=== PATIENT | male | born 1950 | race Caucasian/White ===

== ENCOUNTER 2022-05-16 10:47 | Emergency (ER) | payer OTHER ==
--- OUTSIDE RECORDS SUMMARY | 2022-05-16 10:54 | XMS REPORT | Continuity of Care Document ---
:1950 Author Organization [facility] t Address [address] [place] [address] Care Team Providers Name Role Phone [phone] Primary Care Physician Unavailable JENNIFER ROD Attending Clinician Unavailable SYSTEM, PROVIDER NOT IN Attending Clinician Unavailable JOSE ASKEW Attending Clinician Unavailable ARAM RUIZ Attending Clinician Unavailable KATHARINE HALL Attending Clinician Unavailable MARYLU COLÓN Attending Clinician Unavailable ARIAN READ Attending Clinician Unavailable CARSON BROWN Attending Clinician Unavailable Hang Villa Attending Clinician VISIT, NURSE ST XRAY Attending Clinician Unavailable YONI LLAMAS Attending Clinician Unavailable KATYA SKINNER Attending Clinician Unavailable Hang Villa Admitting Clinician Payers Payer Name Policy Type Policy Number Effective Date Expiration Date S ource MEDICARE PART A [id number] 2016 AND B 00:00:00 GENERIC MEDICARE [id number] 2020 SUP-SECONDARY ONLY 00:00:00 Problems Condition Condition Condition Status Onset Resolution Last Treating Co mments Source Name Details Category Date Date Treatment Clinician Date OSTEOARTHR OSTEOARTH Diagnosis Active 2016-09-29 Memoria 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 07:45:00 l LEFT LEFT 00:00: Jamaal [id number] HIP-M16.12 00 Active 09/15/2016 [place] Malignant Malignant Problem Resolve 2017-04-10 Memoria tumor of tumor of d 01:13:32 l prostate prostate Christian n (disorder) (disorder) Resolved Problem 04/10/2017 [facility] [place] Hip pain Hip pain Problem Active 2017-04-10 Memoria (finding) (finding) 01:13:32 l Active Jamaal Problem 04/10/2017 [facility] [place] Osteoarthr Osteoarth Problem Active 2017-04-10 Memoria itis of ritis of 01:13:32 l hip hip Jamaal (disorder) (disorder) Active Problem 04/10/2017 [facility] [place] Heart Heart Problem Active 2017-04-10 Memor ia murmur murmur 01:13:32 l (finding) (finding) Herm christi Active Problem 04/10/2017 [facility] [place] History of History Problem Active 2017-04-10 Memoria total hip of total 01:13:32 l arthroplas hip Christian n ty arthroplas (situation ty ) (situation ) Active Problem 04/10/2017 [facility] Hypertensi Hypertens Problem Active 2017-04-10 Memoria ve linn 01:13:32 l disorder, disorder, Herm christi systemic systemic arterial arterial (disorder) (disorder) Active Problem 04/10/2017 [facility] [place] 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 01:13:32 l s s Jamaal (disorder) (disorder) Active Problem 04/10/2017 [facility] Obesity Obesity Problem Active 2017-04-10 Me moria (disorder) (disorder) 01:13:32 l Active Hines Problem 04/10/2017 [facility] Preoperati Preoperat Problem Active 2017-04-10 [facility]oria [facility] 01:13:32 l (finding) (finding) Herm christi Active Problem 04/10/2017 [facility] [place] Allergies, Adverse Reactions, Alerts Allergy Allergy Status Severity Reaction(s) Onset Inactive Treating Comm ents Source Name Type Date Date Clinician penicill penicill Active Memori a ins ins l Jamaal Social History Social Habit Start Date Stop Date Quantity Comments Source Social History 2016-09-14 2016-09-14 Jagdish longo 17:08:52 17:08:52 Medications Ordered Filled Start Stop Current Ordering Indication Dosage Frequency Signature Comments Components Source Medication Medication Date Date Medication? Clinician (SIG) Name Name meloxicam 2016-05 Yes 15 mg = 1 Mem oria 15 mg oral 1-13 tab, PO, l tablet 20:17: Daily, # Hines 00 30 tab, 3 Refill(s), Pharmacy: [place] [id number] gabapentin 2016-05 Yes 300 mg = 1 M emoria 300 MG Oral 1-13 cap, PO, l Capsule 20:17: Daily, At Vivienne nn 00 bedtime, # 30 cap, 3 Refill(s), Pharmacy: [place] [id number] meloxicam 2016-05 Yes 15 mg = 1 Mem oria 15 mg oral 1-13 tab, PO, l tablet 20:17: Daily, # Hines 00 30 tab, 3 Refill(s), Pharmacy: [place] [id number] gabapentin 2016-05 Yes 300 mg = 1 M emoria 300 MG Oral 1-13 cap, PO, l Capsule 20:17: Daily, At Vivienne nn 00 bedtime, # 30 cap, 3 Refill(s), Pharmacy: [place] [id number] meloxicam 2016-05 Yes 15 mg = 1 Mem oria 15 mg oral 1-13 tab, PO, l tablet 20:17: Daily, # Hines 00 30 tab, 3 Refill(s), Pharmacy: [facility] gabapentin 2016-05 Yes 300 mg = 1 M emoria 300 MG Oral 1-13 cap, PO, l Capsule 20:17: Daily, At Vivienne nn 00 bedtime, # 30 cap, 3 Refill(s), Pharmacy: [place] [id number] Losartan No Notes: Memoria 5-04 (Same as: l 14:00: Cozaar) Enoxaparin No Notes: Memor ia 5-04 (Same as: l 14:00: Lovenox) Losartan No Notes: Memoria 5-04 (Same as: l 14:00: Cozaar) Enoxaparin No Notes: Memor ia 5-04 (Same as: l 14:00: Lovenox) Losartan No Notes: Memoria 5-04 (Same as: l 14:00: Cozaar) Jamaal Enoxaparin No Notes: Memor ia 5-04 (Same as: l 14:00: Lovenox) Hines acetaminoph No Notes: Max Memoria en 5-04 acetaminop l 11:00: hen 4000 Jamaal 00 mg/day (4 gm/day). (Same as: Tylenol Extra Strength) acetaminoph No Notes: Max Memoria en 5-04 acetaminop l 11:00: hen 4000 Jamaal 00 mg/day (4 gm/day). (Same as: Tylenol Extra Strength) acetaminoph No Notes: Max Memoria en 5-04 acetaminop l 11:00: hen 4000 Jamaal 00 mg/day (4 gm/day). (Same as: Tylenol Extra Strength) Ondansetron No Notes: Ricci breanna 5-04 (Same as: l 05:00: Zofran) Hines 00 MEDICATION WASTE Product Size: 4 mg Product Wasted: ___ mg Ondansetron No Notes: Ricci breanna 5-04 (Same as: l 05:00: Zofran) Jamaal 00 MEDICATION WASTE Product Size: 4 mg Product Wasted: ___ mg Ondansetron No Notes: Ricci breanna 5-04 (Same as: l 05:00: Zofran) Hines 00 MEDICATION WASTE Product Size: 4 mg Product Wasted: ___ mg Saline No Notes: Memoria Flush 0.9% 5-04 (Same as: l 02:00: BD Jamaal 00 Posiflush) Saline No Notes: Memoria Flush 0.9% 5-04 (Same as: l 02:00: BD Jamaal 00 Posiflush) Saline No Notes: Memoria Flush 0.9% 5-04 (Same as: l 02:00: BD Jamaal 00 Posiflush) Vancomycin No 2000 mg: Me moria 5-04 infuse l 01:00: over 2.5 Hines 00 hours MEDICATION WASTE Product Size: 1000 mg Product Wasted: ___ mg Vancomycin No 2001 mg: Me moria 5-04 infuse l 01:00: over 2.5 Jamaal 00 hours MEDICATION WASTE Product Size: 1000 mg Product Wasted: ___ mg Vancomycin No 2001 mg: Me moria 5-04 infuse l 01:00: over 2.5 Jamaal 00 hours MEDICATION WASTE Product Size: 1000 mg Product Wasted: ___ mg gabapentin No Notes: Memor ia 09-21 (Same as: l 23:00: Neurontin) Hines celecoxib No Notes: Memori a 5-03 NSAID. l 23:00: Please Jamaal 00 check indication . Not for seizure. (Same As: CeleBREX) Acetaminoph No Notes: Ricci breanna en 09-21 Infuse l 23:00: over 15 Jamaal 00 minutes Do not exceed 4gm/day of acetaminop hen MEDICATION WASTE Product Size: 1000 mg Product Wasted: ___ mg gabapentin No Notes: Memor ia 09-21 (Same as: l 23:00: Neurontin) Hines celecoxib No Notes: Memori a -03 NSAID. l 23:00: Please Jamaal 00 check indication . Not for seizure. (Same As: CeleBREX) Acetaminoph No Notes: Ricci breanna en 09-21 Infuse l 23:00: over 15 Jamaal 00 minutes Do not exceed 4gm/day of acetaminop hen MEDICATION WASTE Product Size: 1000 mg Product Wasted: ___ mg gabapentin No Notes: Memor ia 09-21 (Same as: l 23:00: Neurontin) Hines celecoxib No Notes: Memori a -03 NSAID. l 23:00: Please Hines 00 check indication . Not for seizure. (Same As: CeleBREX) Acetaminoph No Notes: Ricci breanna en 09-21 Infuse l 23:00: over 15 Jamaal 00 minutes Do not exceed 4gm/day of acetaminop hen MEDICATION WASTE Product Size: 1000 mg Product Wasted: ___ mg Docusate No Notes: Memoria Sodium 100 5-03 (Same as: l MG Oral 22:00: Colace) Jamaal Capsule 00 (Do Not Crush) Docusate No 100 mg, Memori a 5-03 Route: PO, l 22:00: BID, Jamaal 00 Dosing Weight 124.091, kg, Start date: 09/21/16 17:00:00 CDT, Duration: 30 day, Stop date: 10/21/16 9:00:00 CDT Docusate No Notes: Memoria Sodium 100 5-03 (Same as: l MG Oral 22:00: Colace) Jamaal Capsule 00 (Do Not Crush) Docusate No 100 mg, Memori a 5-03 Route: PO, l 22:00: BID, Jamaal 00 Dosing Weight 124.091, kg, Start date: 09/21/16 17:00:00 CDT, Duration: 30 day, Stop date: 10/21/16 9:00:00 CDT Docusate No Notes: Memoria Sodium 100 5-03 (Same as: l MG Oral 22:00: Colace) Jamaal Capsule 00 (Do Not Crush) Docusate No 100 mg, Memori a 5-03 Route: PO, l 22:00: BID, Jamaal 00 Dosing Weight 124.091, kg, Start date: 09/21/16 17:00:00 CDT, Duration: 30 day, Stop date: 10/21/16 9:00:00 CDT Morphine No Notes: Memoria 5-03 (Same l 21:14: as:MORPhin Jamaal 00 e Sulfate) Oxycodone No Notes: Memori a Hydrochlori 5-03 (Same as: l de 5 MG 21:14: Roxicodone Herm christi Oral Tablet ) Morphine No Notes: Memoria 5-03 (Same l 21:14: as:MORPhin Jamaal 00 e Sulfate) Oxycodone No Notes: Memori a Hydrochlori 5-03 (Same as: l de 5 MG 21:14: Roxicodone Herm christi Oral Tablet ) Morphine No Notes: Memoria 5-03 (Same l 21:14: as:MORPhin Jamaal 00 e Sulfate) Oxycodone No Notes: Memori a Hydrochlori -03 (Same as: l de 5 MG 21:14: Roxicodone Herm christi Oral Tablet 00 ) ferrous No Notes: Memoria sulfate 5-03 Give with l 18:00: food. "Do Hines 00 Not Crush" Robaxin No Notes: Memoria 5-03 (Same l 18:00: as:Robaxin Jamaal ) ferrous No Notes: Memoria sulfate 5-03 Give with l 18:00: food. "Do Hines 00 Not Crush" Robaxin No Notes: Memoria 5-03 (Same l 18:00: as:Robaxin Hines ) ferrous No Notes: Memoria sulfate 5-03 Give with l 18:00: food. "Do Hines 00 Not Crush" Robaxin No Notes: Memoria 5-03 (Same l 18:00: as:Robaxin Hines ) Acetaminoph Yes 1 - 2 tab, Memoria en 300 MG / 5-03 PO, Q4H, l Codeine 16:45: PRN Pain, Vivienne nn Phosphate 00 X 14 day, 60 MG Oral # 50 tab, Tablet 0 [Tylenol Refill(s) with Codeine #4] Methocarbam Yes 750 mg = 1 Memoria ol 750 MG 5-03 tab, PO, l Oral Tablet 16:45: BID, X 30 H ermann [Robaxin] 00 day, # 60 tab, 0 Refill(s) gabapentin Yes 300 mg = 1 M emoria 300 MG Oral 5-03 cap, PO, l Capsule 16:45: BID, # 60 Vivienne nn [Neurontin] 00 cap, 0 Refill(s) Acetaminoph Yes 1 - 2 tab, Memoria en 300 MG / 5-03 PO, Q4H, l Codeine 16:45: PRN Pain, Vivienne nn Phosphate 00 X 14 day, 60 MG Oral # 50 tab, Tablet 0 [Tylenol Refill(s) with Codeine #4] Methocarbam Yes 750 mg = 1 Memoria ol 750 MG 5-03 tab, PO, l Oral Tablet 16:45: BID, X 30 H ermann [Robaxin] 00 day, # 60 tab, 0 Refill(s) gabapentin Yes 300 mg = 1 M emoria 300 MG Oral 5-03 cap, PO, l Capsule 16:45: BID, # 60 Vivienne nn [Neurontin] 00 cap, 0 Refill(s) Acetaminoph Yes 1 - 2 tab, Memoria en 300 MG / 5-03 PO, Q4H, l Codeine 16:45: PRN Pain, Vivienne nn Phosphate 00 X 14 day, 60 MG Oral # 50 tab, Tablet 0 [Tylenol Refill(s) with Codeine #4] Methocarbam Yes 750 mg = 1 Memoria ol 750 MG 5-03 tab, PO, l Oral Tablet 16:45: BID, X 30 H ermann [Robaxin] 00 day, # 60 tab, 0 Refill(s) gabapentin Yes 300 mg = 1 M emoria 300 MG Oral 5-03 cap, PO, l Capsule 16:45: BID, # 60 Vivienne nn [Neurontin] 00 cap, 0 Refill(s) Saline No Notes: Memoria Flush 0.9% -03 (Same as: l 16:41: BD Jamaal 00 Posiflush) Diphenhydra No Notes: Ricci breanna mine 5-03 (Same as: l 16:41: Benadryl) Jamaal 00 Magnesium No Notes: Memori a Hydroxide 5-03 (Same as: l 16:41: Milk of Jamaal 00 Magnesia, MOM) Bisacodyl No Notes: Memori a 5-03 (Same As: l 16:41: Dulcolax, Hines Bisco-Lax) Milk of No Notes: Memoria Magnesia 5-03 (Same as: l 16:41: Milk of Magnesia, MOM) Fleet Enema No 133 ml, Mem oria 5-03 Route: MI, l 16:41: Drug Form: Jamaal LAURA, Dosing Weight 125.057, kg, Daily, PRN as needed for constipati on, Start date: 09/21/16 11:41:00 CDT, Duration: 30 day, Stop date: 10/21/16 11:40:00 CDT Reglan No Notes: Memoria 5-03 (Same as: l 16:41: Reglan) Ondansetron No Notes: Ricci breanna 5-03 (Same as: l 16:41: Zofran) MEDICATION WASTE Product Size: 4 mg Product Wasted: ___ mg Acetaminoph No Notes: Do M emoria en 5-03 not exceed l 16:41: 4 gm/day. Jamaal 00 (Same as: Tylenol) Lactated No 1,000 mL, Ricci breanna Ringers - Rate: 125 l 1,000 mL 16:41: ml/hr, Infuse over: 8 hr, Route: IV, Dosing Weight 125.057 kg, Total Volume: 1,000, Start date: 09/21/16 11:41:00 CDT, Duration: 30 day, Stop date: 10/21/16 11:40:00 CDT Saline No Notes: Memoria Flush 0.9% 5-03 (Same as: l 16:41: BD Posiflush) Diphenhydra No Notes: Ricci breanna mine 5-03 (Same as: l 16:41: Benadryl) Magnesium No Notes: Memori a Hydroxide 5-03 (Same as: l 16:41: Milk of Magnesia, MOM) Bisacodyl No Notes: Memori a 5-03 (Same As: l 16:41: Dulcolax, Bisco-Lax) Milk of No Notes: Memoria Magnesia 5-03 (Same as: l 16:41: Milk of Magnesia, MOM) Fleet Enema No 133 ml, Mem oria 5-03 Route: MI, l 16:41: Drug Form: LAURA, Dosing Weight 125.057, kg, Daily, PRN as needed for constipati on, Start date: 09/21/16 11:41:00 CDT, Duration: 30 day, Stop date: 10/21/16 11:40:00 CDT Reglan No Notes: Memoria 5-03 (Same as: l 16:41: Reglan) Ondansetron No Notes: Ricci breanna 5-03 (Same as: l 16:41: Zofran) MEDICATION WASTE Product Size: 4 mg Product Wasted: ___ mg Acetaminoph No Notes: Do M emoria en 5-03 not exceed l 16:41: 4 gm/day. Hines 00 (Same as: Tylenol) Lactated No 1,000 mL, Ricci breanna Ringers -03 Rate: 125 l 1,000 mL 16:41: ml/hr, Infuse over: 8 hr, Route: IV, Dosing Weight 125.057 kg, Total Volume: 1,000, Start date: 09/21/16 11:41:00 CDT, Duration: 30 day, Stop date: 10/21/16 11:40:00 CDT Saline No Notes: Memoria Flush 0.9% 5-03 (Same as: l 16:41: BD Posiflush) Diphenhydra No Notes: Ricci breanna mine 5-03 (Same as: l 16:41: Benadryl) Magnesium No Notes: Memori a Hydroxide 5-03 (Same as: l 16:41: Milk of Hines Magnesia, MOM) Bisacodyl No Notes: Memori a 5-03 (Same As: l 16:41: Dulcolax, Jamaal 00 Bisco-Lax) Milk of No Notes: Memoria Magnesia 5-03 (Same as: l 16:41: Milk of Hines Magnesia, MOM) Fleet Enema No 133 ml, Mem oria 5-03 Route: MI, l 16:41: Drug Form: LAURA, Dosing Weight 125.057, kg, Daily, PRN as needed for constipati on, Start date: 09/21/16 11:41:00 CDT, Duration: 30 day, Stop date: 10/21/16 11:40:00 CDT Reglan No Notes: Memoria 5-03 (Same as: l 16:41: Reglan) Ondansetron No Notes: Ricci breanna 09-21 (Same as: l 16:41: Zofran) MEDICATION WASTE Product Size: 4 mg Product Wasted: ___ mg Acetaminoph No Notes: Do Antoinette jacob en 09-21 not exceed l 16:41: 4 gm/day. (Same as: Tylenol) Lactated No 1,000 mL, Ricci breanna Ringers 09-21 Rate: 125 l 1,000 mL 16:41: ml/hr, Infuse over: 8 hr, Route: IV, Dosing Weight 125.057 kg, Total Volume: 1,000, Start date: 09/21/16 11:41:00 CDT, Duration: 30 day, Stop date: 10/21/16 11:40:00 CDT glycopyrrol No Route: IV, Memoria ate (ANES) 09-21 Drug form: l 16:20: INJ, ONCE, Stop date: 09/21/16 11:20:00 CDT neostigmine No Route: IV, Memoria (ANES) - Drug form: l 16:20: INJ, ONCE, Stop date: 09/21/16 11:20:00 CDT glycopyrrol No Route: IV, Memoria ate (ANES) - Drug form: l 16:20: INJ, ONCE, Stop date: 09/21/16 11:20:00 CDT neostigmine No Route: IV, Memoria (ANES) 5-03 Drug form: l 16:20: INJ, ONCE, Stop date: 09/21/16 11:20:00 CDT glycopyrrol No Route: IV, Memoria ate (ANES) 5- Drug form: l 16:20: INJ, ONCE, Stop date: 09/21/16 11:20:00 CDT neostigmine No Route: IV, Memoria (ANES) 5- Drug form: l 16:20: INJ, ONCE, Stop date: 09/21/16 11:20:00 CDT ondansetron No Route: IV, Memoria (ANES) 5- Drug form: l 16:06: INJ, ONCE, Hines 00 Stop date: 09/21/16 11:06:00 CDT ondansetron No Route: IV, Memoria (ANES) 5-03 Drug form: l 16:06: INJ, ONCE, Hines 00 Stop date: 09/21/16 11:06:00 CDT ondansetron No Route: IV, Memoria (ANES) 5- Drug form: l 16:06: INJ, ONCE, Stop date: 09/21/16 11:06:00 CDT Ondansetron No Notes: Ricci breanna 5-03 (Same as: l 16:01: Zofran) MEDICATION WASTE Product Size: 4 mg Product Wasted: ___ mg Flumazenil No Notes: Memor ia 5-03 (Same as: l 16:01: Romazicon) Naloxone No Notes: Memoria 5-03 Same as l 16:01: Narcan Hydromorpho No Notes: Ricci breanna ne -03 Same as l 16:01: Dilaudid Morphine No Notes: Memoria 5-03 (Same l 16:01: as:MORPhin e Sulfate) Acetaminoph No Notes: Max Memoria en 09-21 acetaminop l 16:01: hen 4000 mg/day (4 gm/day). (Same as: Tylenol Extra Strength) Ketorolac No 4 days Memor ia 5-03 l 16:01: MEDICATION WASTE Product Size: 30 mg Product Wasted: ___ mg Hydralazine No Notes: Ricci breanna 5-03 (Same as: l 16:01: Apresoline ) Push over 5 minutes Metoprolol No Notes: Memor ia 5-03 (Same as: l 16:01: Lopressor) Push over 2 minutes Calcium No 1,000 mL, Memor ia Chloride 5-03 Rate: 125 l 0.0014 16:01: ml/hr, Jamaal MEQ/ML / 00 Infuse Potassium over: 8 Chloride hr, Route: 0.004 IV, Dosing MEQ/ML / Weight Sodium 125.057 Chloride kg, Total 0.103 Volume: MEQ/ML / 1,000, Sodium Start Lactate date: 0.028 09/21/16 MEQ/ML 11:01:00 Injectable CDT, Solution Duration: 30 day, Stop date: 10/21/16 11:00:00 CDT Ondansetron No Notes: Ricci breanna 5-03 (Same as: l 16:01: Zofran) Jamaal 00 MEDICATION WASTE Product Size: 4 mg Product Wasted: ___ mg Flumazenil No Notes: Memor ia 5-03 (Same as: l 16:01: Romazicon) Hines Naloxone No Notes: Memoria 5-03 Same as l 16:01: Narcan Hydromorpho No Notes: Ricci breanna ne -03 Same as l 16:01: Dilaudid Jamaal 00 Morphine No Notes: Memoria 5-03 (Same l 16:01: as:MORPhin Hines 00 e Sulfate) Acetaminoph No Notes: Max Memoria en 09-21 acetaminop l 16:01: hen 4000 Jamaal 00 mg/day (4 gm/day). (Same as: Tylenol Extra Strength) Ketorolac No 4 days Memor ia 5-03 l 16:01: MEDICATION Jamaal WASTE Product Size: 30 mg Product Wasted: ___ mg Hydralazine No Notes: Ricci breanna 5-03 (Same as: l 16:01: Apresoline Jamaal 00 ) Push over 5 minutes Metoprolol No Notes: Memor ia 5-03 (Same as: l 16:01: Lopressor) Hines 00 Push over 2 minutes Calcium No 1,000 mL, Memor ia Chloride 5-03 Rate: 125 l 0.0014 16:01: ml/hr, Hines MEQ/ML / 00 Infuse Potassium over: 8 Chloride hr, Route: 0.004 IV, Dosing MEQ/ML / Weight Sodium 125.057 Chloride kg, Total 0.103 Volume: MEQ/ML / 1,000, Sodium Start Lactate date: 0.028 09/21/17 MEQ/ML 11:01:00 Injectable CDT, Solution Duration: 30 day, Stop date: 10/21/16 11:00:00 CDT Ondansetron No Notes: Ricci breanna 5-03 (Same as: l 16:01: Zofran) Hines MEDICATION WASTE Product Size: 4 mg Product Wasted: ___ mg Flumazenil No Notes: Memor ia 5-03 (Same as: l 16:01: Romazicon) Hines Naloxone No Notes: Memoria 5-03 Same as l 16:01: Narcan Hydromorpho No Notes: Ricci breanna ne - Same as l 16:01: Dilaudid Morphine No Notes: Memoria 5-03 (Same l 16:01: as:MORPhin Jamaal 00 e Sulfate) Acetaminoph No Notes: Max Memoria en 09-21 acetaminop l 16:01: hen 4000 Jamaal 00 mg/day (4 gm/day). (Same as: Tylenol Extra Strength) Ketorolac No 4 days Memor ia 5-03 l 16:01: MEDICATION Hines 00 WASTE Product Size: 30 mg Product Wasted: ___ mg Hydralazine No Notes: Ricci breanna 5-03 (Same as: l 16:01: Apresoline Jamaal 00 ) Push over 5 minutes Metoprolol No Notes: Memor ia 5-03 (Same as: l 16:01: Lopressor) Push over 2 minutes Calcium No 1,000 mL, Memor ia Chloride 5-03 Rate: 125 l 0.0014 16:01: ml/hr, Hines MEQ/ML / 00 Infuse Potassium over: 8 Chloride hr, Route: 0.004 IV, Dosing MEQ/ML / Weight Sodium 125.057 Chloride kg, Total 0.103 Volume: MEQ/ML / 1,000, Sodium Start Lactate date: 0.028 05/03/17 MEQ/ML 11:01:00 Injectable CDT, Solution Duration: 30 day, Stop date: 10/21/16 11:00:00 CDT ropivacaine 2016-0 No Notes: Ricci breanna 5-03 Final l 15:02: concentrat ion: Ropivacain e 0.2% 550 mL ropivacaine 2016-0 No Notes: Ricci breanna 5- Final l 15:02: concentrat ion: Ropivacain e 0.2% 550 mL ropivacaine 2016-0 No Notes: Ricci breanna 5- Final l 15:02: concentrat ion: Ropivacain e 0.2% 550 mL tranexamic 2016-0 No Route: IV, M emoria acid (ANES) 5- Drug form: l 15:01: INJ, ONCE, Stop date: 09/21/16 10:01:00 CDT tranexamic 2016-0 No Route: IV, M emoria acid (ANES) 5- Drug form: l 15:01: INJ, ONCE Stop date: 09/21/16 10:01:00 CDT tranexamic 2016-0 No Route: IV, M emoria acid (ANES) 5-03 Drug form: l 15:01: INJ, ONCE, Stop date: 09/21/16 10:01:00 CDT dexamethaso 2016-0 No Route: IV, Memoria ne (ANES) 5-03 Drug form: l 14:51: INJ, ONCE, Stop date: 09/21/16 9:51:00 CDT dexamethaso 2016-0 No Route: IV, Memoria ne (ANES) 5-03 Drug form: l 14:51: INJ, ONCE, Stop date: 09/21/16 9:51:00 CDT dexamethaso 2017-0 No Route: IV, Memoria ne (ANES) 5-03 Drug form: l 14:51: INJ, ONCE, Stop date: 09/21/16 9:51:00 CDT fentaNYL 2016-0 No Route: IV, Mem oria (ANES) 5-03 Drug form: l 14:31: INJ, ONCE, Stop date: 09/21/16 9:31:00 CDT rocuronium 2017-0 No Route: IV, M emoria (ANES) 5-03 Drug form: l 14:31: INJ, ONCE, Hines 00 Stop date: 09/21/16 9:31:00 CDT ePHEDrine 2017-0 No Route: IV, Me moria (ANES) 5- Drug form: l 14:31: INJ, ONCE, Stop date: 09/21/16 9:31:00 CDT propofol 2017-0 No Route: IV, Mem oria (ANES) 5- Drug form: l 14:31: INJ, ONCE, Jamaal 00 Stop date: 09/21/16 9:31:00 CDT lidocaine 2017-0 No Route: IV, Me moria (ANES) 5- Drug form: l 14:31: INJ, ONCE, Hines 00 Stop date: 09/21/16 9:31:00 CDT fentaNYL 2017-0 No Route: IV, Mem oria (ANES) 5- Drug form: l 14:31: INJ, ONCE, Stop date: 09/21/16 9:31:00 CDT rocuronium 2017-0 No Route: IV, M emoria (ANES) 5- Drug form: l 14:31: INJ, ONCE, Stop date: 09/21/16 9:31:00 CDT ePHEDrine 2017-0 No Route: IV, Me moria (ANES) 5-03 Drug form: l 14:31: INJ, ONCE, Stop date: 09/21/16 9:31:00 CDT propofol 2017-0 No Route: IV, Mem oria (ANES) 5-03 Drug form: l 14:31: INJ, ONCE, Hines 00 Stop date: 09/21/16 9:31:00 CDT lidocaine 2017-0 No Route: IV, Me moria (ANES) 5-03 Drug form: l 14:31: INJ, ONCE, Jamaal 00 Stop date: 09/21/16 9:31:00 CDT fentaNYL 2017-0 No Route: IV, Mem oria (ANES) 5-03 Drug form: l 14:31: INJ, ONCE, Jamaal 00 Stop date: 09/21/16 9:31:00 CDT rocuronium No Route: IV, M emoria (ANES) 09-21 Drug form: l 14:31: INJ, ONCE, Hines 00 Stop date: 09/21/16 9:31:00 CDT ePHEDrine No Route: IV, Me moria (ANES) 09-21 Drug form: l 14:31: INJ, ONCE, Stop date: 09/21/16 9:31:00 CDT propofol No Route: IV, Mem oria (ANES) 09-21 Drug form: l 14:31: INJ, ONCE, Stop date: 09/21/16 9:31:00 CDT lidocaine No Route: IV, Me moria (ANES) 09-21 Drug form: l 14:31: INJ, ONCE, Stop date: 09/21/16 9:31:00 CDT LR 1000 mL No Route: IV, M emoria INJ (ANES) - Total l 13:35: Volume: Hines 00 1,000, Start date: 09/21/16 8:35:00 CDT, Stop date: 09/21/16 9:35:00 CDT LR 1000 mL No Route: IV, M emoria INJ (ANES) - Total l 13:35: Volume: Hines 00 1,000, Start date: 09/21/16 8:35:00 CDT, Stop date: 09/21/16 9:35:00 CDT LR 1000 mL No Route: IV, M emoria INJ (ANES) - Total l 13:35: Volume: Hines 00 1,000, Start date: 09/21/16 8:35:00 CDT, Stop date: 09/21/16 9:35:00 CDT sodium No Route: IV, Memor ia chloride 09-21 Drug form: l 0.9% 250 ml 13:00: INJ, Start Jamaal INJ (ANES) 00 date: + 09/21/16 vancomycin 8:00:00 (ANES) CDT, Stop (ANES) date: 09/21/16 9:00:00 CDT sodium 2017-0 No Route: IV, Memor ia chloride 09-21 Drug form: l 0.9% 250 ml 13:00: INJ, Start Jamaal INJ (ANES) 00 date: 09/21/16 vancomycin 8:00:00 (ANES) CDT, Stop (ANES) date: 09/21/16 9:00:00 CDT sodium 2017-0 No Route: IV, Memor ia chloride 09-21 Drug form: l 0.9% 250 ml 13:00: INJ, Start Jamaal INJ (ANES) 00 date: 09/21/16 vancomycin 8:00:00 (ANES) CDT, Stop (ANES) date: 09/21/16 9:00:00 CDT Calcium 2017-0 No 1,000 mL, Memor ia Chloride 09-21 Rate: 25 l 0.0014 11:06: ml/hr, Jamaal MEQ/ML / 00 Infuse Potassium over: 40 Chloride hr, Route: 0.004 IV, Dosing MEQ/ML / Weight 125 Sodium kg, Total Chloride Volume: 0.103 1,000, MEQ/ML / Start Sodium date: Lactate 09/21/16 0.028 6:06:00 MEQ/ML CDT, Injectable Duration: Solution 30 day, Stop date: 10/21/16 6:05:00 CDT Calcium 2017-0 No 1,000 mL, Memor ia Chloride 09-21 Rate: 25 l 0.0014 11:06: ml/hr, Hines MEQ/ML / 00 Infuse Potassium over: 40 Chloride hr, Route: 0.004 IV, Dosing MEQ/ML / Weight 125 Sodium kg, Total Chloride Volume: 0.103 1,000, MEQ/ML / Start Sodium date: Lactate 09/21/16 0.028 6:06:00 MEQ/ML CDT, Injectable Duration: Solution 30 day, Stop date: 10/21/16 6:05:00 CDT Calcium 2017-0 No 1,000 mL, Memor ia Chloride 09-21 Rate: 25 l 0.0014 11:06: ml/hr, Jamaal MEQ/ML / 00 Infuse Potassium over: 40 Chloride hr, Route: 0.004 IV, Dosing MEQ/ML / Weight 125 Sodium kg, Total Chloride Volume: 0.103 1,000, MEQ/ML / Start Sodium date: Lactate 09/21/16 0.028 6:06:00 MEQ/ML CDT, Injectable Duration: Solution 30 day, Stop date: 10/21/16 6:05:00 CDT BD Normal No Notes: Memori a Saline 5-03 (Same as: l Flush 11:00: BD Hines Posiflush) Neurontin No Notes: Memori a 5-03 (Same as: l 11:00: Neurontin) Jamaal CeleBREX No Notes: Memoria 5-03 NSAID. l 11:00: Please Jamaal 00 check indication . Not for seizure. (Same As: CeleBREX) Ancef No Notes: Memoria 5-03 Same as: l 11:00: Ancef Hines vancomycin 0 No 2001 mg: Me moria + sodium 5-03 infuse l chloride 11:00: over 2.5 Vivienne nn 0.9% 500 mL 00 hours INJ (for IV MEDICATION set) 500 mL WASTE Product Size: 1000 mg Product Wasted: ___ mg BD Normal No Notes: Memori a Saline 5-03 (Same as: l Flush 11:00: BD Hines Posiflush) Neurontin No Notes: Memori a 5-03 (Same as: l 11:00: Neurontin) Jamaal CeleBREX No Notes: Memoria 5-03 NSAID. l 11:00: Please Jamaal 00 check indication . Not for seizure. (Same As: CeleBREX) Ancef No Notes: Memoria 5-03 Same as: l 11:00: Ancef Hines vancomycin 0 No 2001 mg: Me moria + sodium 5-03 infuse l chloride 11:00: over 2.5 Vivienne nn 0.9% 500 mL 00 hours INJ (for IV MEDICATION set) 500 mL WASTE Product Size: 1000 mg Product Wasted: ___ mg BD Normal No Notes: Memori a Saline 5-03 (Same as: l Flush 11:00: BD Jamaal 00 Posiflush) Neurontin 0 No Notes: Memori a 5-03 (Same as: l 11:00: Neurontin) Jamaal CeleBREX No Notes: Memoria 5-03 NSAID. l 11:00: Please Jamaal 00 check indication . Not for seizure. (Same As: CeleBREX) Ancef No Notes: Memoria 5-03 Same as: l 11:00: Ancef Jamaal 00 vancomycin No 2000 mg: Me moria + sodium - infuse l chloride 11:00: over 2.5 Vivienne nn 0.9% 500 mL 00 hours INJ (for IV MEDICATION set) 500 mL WASTE Product Size: 1000 mg Product Wasted: ___ mg Vital Signs Vital Name Observation Time Observation Value Comments Source Heart Rate 2017-04-03 20:02:00 [facility] Weight 2017-04-03 20:02:00 [facility] Systolic (mm Hg) 2017-04-03 20:02:00 Ricci rial Hines Diastolic (mm Hg) 2017-04-03 20:02:00 Mem orial Hines Systolic (mm Hg) 2016-09-22 16:55:00 Ricci rial Jamaal Diastolic (mm Hg) 2016-09-22 16:55:00 Mem orial Hines Respitory Rate 2016-09-22 16:55:00 Memori al Jamaal Heart Rate 2016-09-22 16:55:00 [facility] Temperature Oral (F) 2016-09-22 16:55:00 98.1 F [facility] Systolic (mm Hg) 2016-09-22 12:21:00 Ricci rial Hines Diastolic (mm Hg) 2016-09-22 12:21:00 Mem orial Jamaal Respitory Rate 2016-09-22 12:21:00 Memori al Jamaal Temperature Oral (F) 2016-09-22 12:21:00 97.7 F [facility] Heart Rate 2016-09-22 12:21:00 [facility] Respitory Rate 2016-09-22 10:16:00 Memori al Jamaal Heart Rate 2016-09-22 10:16:00 [facility] Systolic (mm Hg) 2016-09-22 10:16:00 Ricci rial Jamaal Diastolic (mm Hg) 2016-09-22 10:16:00 Mem orial Jamaal Temperature Oral (F) 2016-09-22 10:16:00 98.3 F [facility] BMI Calculated 2016-09-21 18:31:00 Rashid davis Hines Weight 2016-09-21 18:31:00 [facility] Height 2016-09-21 18:31:00 182.88 cm [facility] BMI Calculated 2016-09-21 11:07:00 Rashid davis Jamaal Weight 2016-09-21 11:07:00 [facility] Height 2016-09-14 17:03:00 182.88 cm [facility] Procedures Procedure Date / Time Performed Performing Clinician [facility] camacho Arthroplasty of the 2016-09-21 05:00:00 [facility] Jamaal hip<sup>1</sup> Procedure on 2004-05-22 00:00:00 [facility] Her ndiaye prostate<sup>2</sup> Encounters Start End Encounter Admission Attending Care Care Encounter Source Date/Time Date/Time Type Type Clinicians Facility Department ID 2022-04-29 Inpatient JUAN M ROD [facility] [id number] [place] 11:00:00 JENNIFER [id number] [facility] 2020-12-03 Outpatient SYSTEM, [facility] [id number] 13:01:42 PROVIDER Stevenradha wilkinson 2022-05-12 2022-05-12 Emergency ER JAMILAH, [facility] [id number] [place] 07:06:00 12:39:00 JOSE [id number] [facility] 2022-05-04 2022-05-04 Outpatient JUAN M ROD [facility] [id number] [place] 07:18:00 07:18:00 JENNIFER [id number] [facility] 2022-04-19 2022-04-19 Outpatient JUAN M GALE [facility] [id number] [place] 07:56:00 07:56:00 Vernon [id number] d a [facility] 2022-01-19 2022-01-19 Outpatient JUAN M PANT [facility] [id number] [place] 08:35:00 08:35:00 Vernon [id number] d a [facility] 2021-12-30 2021-12-30 Outpatient JUAN M ISABEL, [facility] [id number] [place] 07:56:00 07:56:00 KATHARINE [id number] [facility] 2021-10-04 2021-10-04 Outpatient EL PANT [facility] [id number] [place] 07:50:00 07:50:00 TERESE -[id number] d [facility] 2021-07-06 2021-07-06 Outpatient EL PANT [facility] [id number] [place] 07:46:00 07:46:00 TERESE -[id number] d [facility] 2021-04-08 2021-04-08 Outpatient [place] PANT [facility] [id number] [place] 08:33:00 08:33:00 TERESE -[id number] d [facility] 2020-12-28 2020-12-28 Outpatient EL PANT [facility] [id number] [place] 08:08:00 08:08:00 TERESE -[id number] d [facility] 2020-12-23 2020-12-23 Outpatient [place] PANT [facility] [id number] [place] 07:45:00 07:45:00 TERESE -[id number] d [facility] 2020-12-08 2020-12-08 Outpatient JUAN M COLÓN MDA MDA [id number] 13:28:30 16:13:42 MARYLU wilkinson 2020-12-08 2020-12-08 Outpatient JUAN M DELONTE READ MDA [id number] 15:12:05 15:14:57 ARIAN wilkinson 2020-12-08 2020-12-08 Outpatient JUAN M COLÓN MDA MDA [id number] 13:07:57 13:07:57 MARYLU wilkinson 2020-12-08 2020-12-08 Outpatient JUAN M COLÓN DELONTE MDA [id number] 12:45:53 12:46:01 MARYLU wilkinson 2020-11-29 2020-11-29 Emergency ER [facility] [id number] [place] 04:01:00 06:50:00 [id number] [facility] 2017-04-07 2017-04-07 [place] [id number] Memoria 19:15:00 19:15:00 Pre-Reg r Orthopedics 16 [facility] 2017-04-07 2017-04-07 [place] [id number] [facility] 19:15:00 19:15:00 Pre-Reg r Orthopedics 16 [facility] [place] 2017-04-07 2017-04-07 Outpatient B[facility] SORIANOIE [id number] [facility]oria 13:15:00 13:15:00 16 [facility] [place] 2017-04-07 2017-04-07 [id number] 13:15:00 13:15:00 Hang F 16 2017-04-03 2017-04-04 [place] [id number] [facility] 19:30:00 05:59:59 r Orthopedics 17 [facility] 2017-04-03 2017-04-04 [place] [id number] [facility] 19:30:00 05:59:59 r Orthopedics 17 [facility] [place] 2017-04-03 2017-04-04 Outpatient nullFlavo MG Family 5 [id number] Memoria 19:00:00 05:59:59 r Medicine 18 [facility] [place] 2017-04-03 2017-04-04 Outpatient nullFlavo MG Family 5 [id number] Memoria 19:00:00 05:59:59 r Medicine 18 [facility] [place] 2017-04-03 2017-04-03 [facility] [id number] 13:30:00 23:59:59 Hang F 17 2017-04-03 2017-04-03 Outpatient VISIT, MG MG [id number] 13:00:00 23:59:[address] 18 RUSSEL 2017-04-03 2017-04-03 Outpatient [facility] [id number] Memoria 13:30:00 13:30:00 17 [facility] [place] 2017-04-03 2017-04-03 Outpatient [facility] S[facility]OIE [id number] Memoria 13:00:00 13:00:00 18 [facility] 2017-01-06 2017-01-06 Outpatient BOIE BOIE [id number] Memoria 14:45:00 14:45:00 15 [facility] Jamaal 2017-01-06 2017-01-06 Outpatient MHIE MHIE [id number] Memoria 14:45:00 14:45:00 14 [facility] Hines 2017-01-06 2017-01-06 Outpatient MHIE MHIE [id number] Memoria 14:45:00 14:45:00 15 [facility] Hines 2017-01-06 2017-01-06 Outpatient MHIE MHIE [id number] Memoria 14:45:00 14:45:00 14 [facility] Hines 2017-01-06 2017-01-06 Outpatient MHIE MHIE [id number] Memoria 14:15:00 14:15:00 13 [facility] Jamaal 2017-01-06 2017-01-06 Outpatient MHIE MHIE [id number] Memoria 14:15:00 14:15:00 13 [facility] Jamaal 2017-01-06 2017-01-06 Outpatient MHIE MHIE [id number] Memoria 13:45:00 13:45:00 12 [facility] Hines 2017-01-06 2017-01-06 Outpatient MHIE MHIE [id number] Memoria 13:45:00 13:45:00 12 [facility] Jamaal 2016-12-09 2016-12-09 Outpatient MHIE MHIE [id number] Memoria 13:15:00 13:15:00 11 [facility] Hines 2016-12-09 2016-12-09 Outpatient MHIE MHIE [id number] Memoria 13:15:00 13:15:00 11 [facility] 2016-11-11 2016-11-11 Outpatient MHIE MHIE [id number] Memoria 14:45:00 14:45:00 09 [facility] Hines 2016-11-11 2016-11-11 Outpatient MHIE MHIE [id number] Memoria 14:45:00 14:45:00 10 [facility] Jamaal 2016-11-11 2016-11-11 Outpatient MHIE MHIE [id number] Memoria 14:45:00 14:45:00 09 [facility] Jamaal 2016-11-11 2016-11-11 Outpatient MHIE MHIE [id number] Memoria 14:45:00 14:45:00 10 [facility] Jamaal 2016-11-11 2016-11-11 Outpatient MHIE MHIE [id number] Memoria 14:00:00 14:00:00 08 [facility] 2016-11-11 2016-11-11 Outpatient MHIE MHIE [id number] Memoria 14:00:00 14:00:00 08 [facility] 2016-10-10 2016-10-10 Outpatient MHIE MHIE [id number] Memoria 15:15:00 15:15:00 07 [facility] 2016-10-10 2016-10-10 Outpatient MHIE MHIE [id number] Memoria 15:15:00 15:15:00 07 [facility] 2016-10-03 2016-10-03 Outpatient MHIE MHIE [id number] Memoria 14:00:00 14:00:00 06 [facility] 2016-10-03 2016-10-03 Outpatient MHIE MHIE [id number] Memoria 14:00:00 14:00:00 06 [facility] 2016-09-21 2016-09-22 Inpatient nullFlavo [facility] [id number] [facility]oria 10:47:54 20:01:00 r Hines 00 l [place] Vivienne nn 2016-09-21 2016-09-22 Inpatient nullFlavo [facility] [id number] Memoria 10:47:54 20:01:00 r Hines 00 l [place] Vivienne nn 2016-09-21 2016-09-22 Outpatient Allen, [facility] MH[facility] [id number] 05:47:54 15:01:00 Hang Massey 2016-09-05 2016-09-05 Outpatient MHIE MHIE [id number] Memoria 09:30:00 09:30:00 05 [facility] 2016-09-05 2016-09-05 Outpatient MHIE MHIE [id number] Memoria 09:30:00 09:30:00 05 [facility] [place] 2016-08-30 2016-08-30 Outpatient MHIE MHIE [id number] Memoria 15:15:00 15:15:00 04 [facility] 2016-08-30 2016-08-30 Outpatient MHIE MHIE [id number] Memoria 15:15:00 15:15:00 04 [facility] 2016-08-22 2016-08-22 Outpatient MHIE MHIE [id number] Memoria 15:00:00 15:00:00 03 [facility] [place] 2016-08-22 2016-08-22 Outpatient MHIE MHIE [id number] Memoria 15:00:00 15:00:00 03 [facility] [place] 2016-08-15 2016-08-15 Outpatient MHIE BOIE [id number] Memoria 15:00:00 15:00:00 02 [facility] 2016-08-15 2016-08-15 Outpatient MHIE BOIE [id number] Memoria 15:00:00 15:00:00 01 [facility] CostelloJamaal 2016-08-15 2016-08-15 Outpatient MHIE BOIE [id number] Memoria 15:00:00 15:00:00 02 [facility] Hines 2016-08-15 2016-08-15 Outpatient MHIE BOIE [id number] Memoria 15:00:00 15:00:00 01 [facility] Jamaal 2016-08-15 2016-08-15 Outpatient BOIE BOIE [id number] Memoria 14:45:00 14:45:00 00 [facility] Hines 2016-08-15 2016-08-15 Outpatient BOIE BOIE [id number] Memoria 14:45:00 14:45:00 00 [facility] 2012-12-14 2012-12-14 Outpatient JAUN M LLAMAS [facility] [id number] [place] 09:14:00 09:14:00 YONI -[id number] [facility] 2012-06-11 2012-06-11 Outpatient JUAN M LLAMAS [facility] [id number] [place] 11:50:00 11:50:00 YONI -[id number] [facility] 2010-01-19 2010-01-19 Outpatient MOSES SKINNER [facility] [id number] [place] 12:37:00 12:37:00 KATYA -[id number] [facility] Results Test Description Test Time Test Comments Results Result Comments Source CHEM PANEL 2016-09-22 10:07:00 Test Item Value Reference Range Interpretation Comme nts Creatinine Lvl (test code = Creatinine Lvl) 0.84 0[facility]50[facility]1.40 [id number] 10:07:00 Test Item Value Reference Range Interpretation Comments Glucose Lvl (test code = Glucose Lvl) 146 70-99 [facility] [id number] 10:07:00 Test Item Value Reference Range Interpretation Comments CO2 (test code = CO2) 27 24-32 [facility]2017-05-04 10:07:00 Test Item Value Reference Range Interpretation Comments Calcium Lvl (test code = Calcium Lvl) 9.0 8.5-10.5 [facility]2017-05-04 10:07:00 Test Item Value Reference Range Interpretation Comments Chloride Lvl (test code = Chloride Lvl) 106 95-109 [facility]2017-05-04 10:07:00 Test Item Value Reference Range Interpretation Comments Sodium Lvl (test code = Sodium Lvl) 141 135-145 [facility]2017-05-04 10:07:00 Test Item Value Reference Range Interpretation Comments Potassium Lvl (test code = Potassium 4.1 3.5-5.1 Lvl) [facility]2017-05-04 10:07:00 Test Item Value Reference Range Interpretation Comments CO2 (test code = CO2) 27 [facility]2017-05-04 10:07:00 Test Item Value Reference Range Interpretation Comments Calcium Lvl (test code = Calcium Lvl) 9.0 8.5-10.5 [facility]2017-05-04 10:07:00 Test Item Value Reference Range Interpretation Comments Chloride Lvl (test code = Chloride Lvl) 106 95-109 [facility]2017-05-04 10:07:00 Test Item Value Reference Range Interpretation Comments Sodium Lvl (test code = Sodium Lvl) 141 135-145 [facility]2017-05-04 10:07:00 Test Item Value Reference Range Interpretation Comments Potassium Lvl (test code = Potassium 4.1 3.5-5.1 Lvl) [facility]2017-05-04 10:07:00 Test Item Value Reference Range Interpretation Comments BUN (test code = BUN) 11 12-10 [facility]2017-05-04 10:07:00 Test Item Value Reference Range Interpretation Comments AGAP (test code = AGAP) 12.1 10.0-20.0 [id number] 10:07:00 Test Item Value Reference Range Interpretation Comments MCV (test code = MCV) 96.0 80.0-94.0 [facility] HospitalKgrpgbtJBACOQDHDR9536-44-36 10:07:00 Test Item Value Reference Range Interpretation Comments RBC (test code = RBC) 4.14 4.70-6.10 [facility] HospitalXysmyssDQZJVVPRLV7216-10-71 10:07:00 Test Item Value Reference Range Interpretation Comments Hct (test code = Hct) 39.8 42.0-54.0 [facility] HospitalWclbjmuUEPFWLJSRK4696-72-75 10:07:00 Test Item Value Reference Range Interpretation Comments WBC (test code = WBC) 12.4 3.7-10.4 [facility] HospitalIdfuigaIKWEQQGJXS1769-11-55 10:07:00 Test Item Value Reference Range Interpretation Comments Hgb (test code = Hgb) 13.1 14.0-18.0 [facility] HospitalJonnsojBASZBVKUJC3287-03-04 10:07:00 Test Item Value Reference Range Interpretation Comments MPV (test code = MPV) 9.9 7.4-10.4 [facility] HospitalMlohdbkPKJJDTDGSU4498-20-26 10:07:00 Test Item Value Reference Range Interpretation Comments MCHC (test code = MCHC) 33.0 32.0-36.0 [facility] HospitalZvpuluxXMQBIDNQGG7927-00-88 10:07:00 Test Item Value Reference Range Interpretation Comments Platelet (test code = Platelet) 145 133-450 [facility] HospitalXtsqrazMZZLHLSEAH0551-00-81 10:07:00 Test Item Value Reference Range Interpretation Comments MCH (test code = MCH) 31.7 pg 27.0-31.0 [facility] Hos[id number] 10:07:00 Test Item Value Reference Range Interpretation Comments RDW (test code = RDW) 13.0 11.5-14.5 [facility] Hospit[id number] 10:07:00 Test Item Value Reference Range Interpretation Comments Monocytes # (test code 1.3 See_Comment [Aut omated message] The = Monocytes #) system which generated this result tra nsmitted reference range : <=0.8. The reference r shannen was not used to int erpret this result as normal/abnormal . [facility] HospitalBaewsfeHUZFVOXJOV4887-85-46 10:07:00 Test Item Value Reference Range Interpretation Comments Basophils # (test code 0.0 See_Comment [Aut omated message] The = Basophils #) system which generated this result tra nsmitted reference range : <=0.2. The reference r shannen was not used to int erpret this result as normal/abnormal . [facility] HospitalHmrjjpeIJKZHRQTLB0435-07-50 10:07:00 Test Item Value Reference Range Interpretation Comments Eosinophils # (test code 0.0 See_Comment [A utomated message] The = Eosinophils #) system whic h generated this result tra nsmitted reference range : <=0.5. The reference r shannen was not used to int erpret this result as normal/abnormal . [facility] HospitalHtgmtkkFTBXPKYPON7576-15-35 10:07:00 Test Item Value Reference Range Interpretation Comments Basophils (test code = 0.3 See_Comment [Aut omated message] The Basophils) system which ge nerated this result tra nsmitted reference range : <=1.0. The reference r shannen was not used to int erpret this result as normal/abnormal . [facility] HospitalYukuegfCPMDMLCPQB4815-65-35 10:07:00 Test Item Value Reference Range Interpretation Comments Segs-Bands # (test code = Segs-Bands #) 10.2 1.5-8.1 [facility] HospitalEfzfxduSCLLDFTOQT9122-93-37 10:07:00 Test Item Value Reference Range Interpretation Comments Lymphocytes # (test code = Lymphocytes 0.9 1.0-5.5 #) [facility] HospitalZfhjamtLDAIPQMFPU9298-67-34 10:07:00 Test Item Value Reference Range Interpretation Comments Lymphocytes (test code = Lymphocytes) 7.3 20.0-40.0 [facility] HospitalYdkevhuUYOKBCYVAV6284-97-71 10:07:00 Test Item Value Reference Range Interpretation Comments Segs (test code = Segs) 82.3 45.0-75.0 [facility] HospitalTwqdeshOUVPYYYOYR8551-67-50 10:07:00 Test Item Value Reference Range Interpretation Comments Eosinophils (test code = 0.0 See_Comment [A utomated message] The Eosinophils) system which ge nerated this result tra nsmitted reference range : <=4.0. The reference r shannen was not used to int erpret this result as normal/abnormal . [facility] HospitalNcfsizvCLRTKZZKKN2247-79-52 10:07:00 Test Item Value Reference Range Interpretation Comments Monocytes (test code = Monocytes) 10.1 2.0-12.0 [facility] HospitalFwycpjtTQIONBZBAX9744-47-22 10:07:00 Test Item Value Reference Range Interpretation Comments RBC Morph (test code = Normal (09/22/16 5:07 AM) RBC Morph) [facility] HospitalS[id number] 10:07:00 Test Item Value Reference Range Interpretation Comments Plt Morph (test code = Normal (09/22/16 5:07 AM) Plt Morph) [facility]2017-05-04 10:07:00 Test Item Value Reference Range Interpretation Comments eGFR (test code = eGFR) 92 [facility]2017-05-04 10:07:00 Test Item Value Reference Range Interpretation Comments Creatinine Lvl (test code = Creatinine 0.84 0.50-1.40 Lvl) [facility]2017-05-04 10:07:00 Test Item Value Reference Range Interpretation Comments Glucose Lvl (test code = Glucose Lvl) 146 70-99 [facility]2017-05-04 10:07:00 Test Item Value Reference Range Interpretation Comments BUN (test code = BUN) 11 7- [facility]2017-05-04 10:07:00 Test Item Value Reference Range Interpretation Comments AGAP (test code = AGAP) 12.1 10.0-20.0 [facility] HospitalUtqmfilMGWFHYRQSV7801-59-30 10:07:00 Test Item Value Reference Range Interpretation Comments MCV (test code = MCV) 96.0 80.0-94.0 [facility] HospitalXxdhiqjEQDDBKNLFZ6770-19-80 10:07:00 Test Item Value Reference Range Interpretation Comments RBC (test code = RBC) 4.14 4.70-6.10 [facility] HospitalTyqhxdvQABWDGJBHT9332-05-44 10:07:00 Test Item Value Reference Range Interpretation Comments Hct (test code = Hct) 39.8 42.0-54.0 [facility] HospitalGttgukeXVYDQXHYUF8795-88-02 10:07:00 Test Item Value Reference Range Interpretation Comments WBC (test code = WBC) 12.4 3.7-10.4 [facility] HospitalRmtlobqIBPHBSZLIU2601-57-11 10:07:00 Test Item Value Reference Range Interpretation Comments Hgb (test code = Hgb) 13.1 14.0-18.0 [facility] HospitalZftosejRCUVSRJOFZ7677-18-22 10:07:00 Test Item Value Reference Range Interpretation Comments MPV (test code = MPV) 9.9 7.4-10.4 [facility] HospitalAaycmuxGMCVXATZUB6742-81-97 10:07:00 Test Item Value Reference Range Interpretation Comments MCHC (test code = MCHC) 33.0 32.0-36.0 [facility] HospitalAkzdqczNBXSGAUAKP9455-23-60 10:07:00 Test Item Value Reference Range Interpretation Comments Platelet (test code = Platelet) 145 133-450 [facility] HospitalChcoalbTIYLRQRGDP4959-54-81 10:07:00 Test Item Value Reference Range Interpretation Comments MCH (test code = MCH) 31.7 pg 27.0-31.0 [facility] HospitalHwaurvxWBBTCPXMYY3314-07-96 10:07:00 Test Item Value Reference Range Interpretation Comments RDW (test code = RDW) 13.0 11.5-14.5 [facility] Hospit[id number] 10:07:00 Test Item Value Reference Range Interpretation Comments Monocytes # (test code 1.3 See_Comment [Aut omated message] The = Monocytes #) system which generated this result tra nsmitted reference range : <=0.8. The reference r shannen was not used to int erpret this result as normal/abnormal . [facility] HospitalQvalaeiLTLPVFOLXW8572-16-92 10:07:00 Test Item Value Reference Range Interpretation Comments Basophils # (test code 0.0 See_Comment [Aut omated message] The = Basophils #) system which generated this result tra nsmitted reference range : <=0.2. The reference r shannen was not used to int erpret this result as normal/abnormal . [facility] HospitalKzpckxgVTAOFKVEVX2544-85-27 10:07:00 Test Item Value Reference Range Interpretation Comments Eosinophils # (test code 0.0 See_Comment [A utomated message] The = Eosinophils #) system [facility] h generated this result tra nsmitted reference range : <=0.5. The reference r shannen was not used to int erpret this result as normal/abnormal . [facility] HospitalEefxaavYVOJIUGJOI9785-28-96 10:07:00 Test Item Value Reference Range Interpretation Comments Basophils (test code = 0.3 See_Comment [Aut omated message] The Basophils) system which ge nerated this result tra nsmitted reference range : <=1.0. The reference r shannen was not used to int erpret this result as normal/abnormal . [facility] HospitalYpzizusNDQGFECWQI5987-18-42 10:07:00 Test Item Value Reference Range Interpretation Comments Segs-Bands # (test code = Segs-Bands #) 10.2 1.5-8.1 [facility] HospitalLbyhxpoYXQJIVOMCU9994-22-26 10:07:00 Test Item Value Reference Range Interpretation Comments Lymphocytes # (test code = Lymphocytes 0.9 1.0-5.5 #) [facility] HospitalPkvwknsDJBOXICMQL3789-23-08 10:07:00 Test Item Value Reference Range Interpretation Comments Lymphocytes (test code = Lymphocytes) 7.3 20.0-40.0 [facility] HospitalYniwkmqEPNLGMSOMP0465-54-12 10:07:00 Test Item Value Reference Range Interpretation Comments Segs (test code = Segs) 82.3 45.0-75.0 [facility] HospitalXujwqtfCKQRKRWBCW0649-50-40 10:07:00 Test Item Value Reference Range Interpretation Comments Eosinophils (test code = 0.0 See_Comment [A utomated message] The Eosinophils) system which ge nerated this result tra nsmitted reference range : <=4.0. The reference r shannen was not used to int erpret this result as normal/abnormal . [facility] HospitalQvjtshpBOKLJGCBUP8227-30-15 10:07:00 Test Item Value Reference Range Interpretation Comments Monocytes (test code = Monocytes) 10.1 2.0-12.0 [facility] HospitalVnyezhfTYFPKHMISJ8887-35-53 10:07:00 Test Item Value Reference Range Interpretation Comments RBC Morph (test code = Normal (09/22/16 5:07 AM) RBC Morph) [facility] HospitalYokeztaKSHPWHVCFI1476-64-22 10:07:00 Test Item Value Reference Range Interpretation Comments Plt Morph (test code = Normal (09/22/16 5:07 AM) Plt Morph) [facility]2017-05-04 10:07:00 Test Item Value Reference Range Interpretation Comments eGFR (test code = eGFR) 92 [facility]2017-05-04 10:07:00 Test Item Value Reference Range Interpretation Comments Creatinine Lvl (test code = Creatinine 0.84 0.50-1.40 Lvl) [facility]2017-05-04 10:07:00 Test Item Value Reference Range Interpretation Comments Glucose Lvl (test code = Glucose Lvl) 146 70-99 [facility]2017-05-04 10:07:00 Test Item Value Reference Range Interpretation Comments CO2 (test code = CO2) 27 24-32 [facility]2017-05-04 10:07:00 Test Item Value Reference Range Interpretation Comments Calcium Lvl (test code = Calcium Lvl) 9.0 8.5-10.5 [facility]2017-05-04 10:07:00 Test Item Value Reference Range Interpretation Comments Chloride Lvl (test code = Chloride Lvl) 106 95-109 [facility]2017-05-04 10:07:00 Test Item Value Reference Range Interpretation Comments Sodium Lvl (test code = Sodium Lvl) 141 135-145 [facility]2017-05-04 10:07:00 Test Item Value Reference Range Interpretation Comments Potassium Lvl (test code = Potassium 4.1 3.5-5.1 Lvl) [facility]2017-05-04 10:07:00 Test Item Value Reference Range Interpretation Comments BUN (test code = BUN) 11 7-22 [facility]2017-05-04 10:07:00 Test Item Value Reference Range Interpretation Comments AGAP (test code = AGAP) 12.1 10.0-20.0 [facility]bnqbbzZSYVKWISPV1035-98-06 10:07:00 Test Item Value Reference Range Interpretation Comments MCV (test code = MCV) 96.0 80.0-94.0 [facility] HospitalKxlmcljDCWIOSUAOY5874-15-46 10:07:00 Test Item Value Reference Range Interpretation Comments RBC (test code = RBC) 4.14 4.70-6.10 [facility] HospitalLtlipljTDNAWJXJEO5683-75-20 10:07:00 Test Item Value Reference Range Interpretation Comments Hct (test code = Hct) 39.8 42.0-54.0 [facility] HospitalXaahhjlTJTSCFVKPB1445-86-62 10:07:00 Test Item Value Reference Range Interpretation Comments WBC (test code = WBC) 12.4 3.7-10.4 [facility] HospitalWqrmyqvNYPZKAFUUG9569-40-51 10:07:00 Test Item Value Reference Range Interpretation Comments Hgb (test code = Hgb) 13.1 14.0-18.0 [facility] HospitalKcichjeASMDOOQBQE1610-82-13 10:07:00 Test Item Value Reference Range Interpretation Comments MPV (test code = MPV) 9.9 7.4-10.4 [facility] HospitalWtxdgtvWOLMWLVRSJ6950-19-46 10:07:00 Test Item Value Reference Range Interpretation Comments MCHC (test code = MCHC) 33.0 32.0-36.0 [facility] HospitalJfpnwpbGBAMOAKGCB9263-81-94 10:07:00 Test Item Value Reference Range Interpretation Comments Platelet (test code = Platelet) 145 133-450 [facility] HospitalIbozliiVCZWIGUZUH1931-72-56 10:07:00 Test Item Value Reference Range Interpretation Comments MCH (test code = MCH) 31.7 pg 27.0-31.0 [facility] HospitalOaptagzEVCEYDXKRU5211-99-19 10:07:00 Test Item Value Reference Range Interpretation Comments RDW (test code = RDW) 13.0 11.5-14.5 [facility] HospitalVuclohrVKYENXADQD9785-02-15 10:07:00 Test Item Value Reference Range Interpretation Comments Monocytes # (test code 1.3 See_Comment [Aut omated message] The = Monocytes #) system which generated this result tra nsmitted reference range : <=0.8. The reference r shannen was not used to int erpret this result as normal/abnormal . [facility] HospitalOufjniiTPMJZMLMMB1349-35-22 10:07:00 Test Item Value Reference Range Interpretation Comments Basophils # (test code 0.0 See_Comment [Aut omated message] The = Basophils #) system which generated this result tra nsmitted reference range : <=0.2. The reference r shannen was not used to int erpret this result as normal/abnormal . [facility] HospitalSaxzggkRGVLWWJCJQ4786-84-94 10:07:00 Test Item Value Reference Range Interpretation Comments Eosinophils # (test code 0.0 See_Comment [A utomated message] The = Eosinophils #) system [facility] h generated this result tra nsmitted reference range : <=0.5. The reference r shannen was not used to int erpret this result as normal/abnormal . [facility] HospitalAbdccaqSUELLNUEPR8181-79-43 10:07:00 Test Item Value Reference Range Interpretation Comments Basophils (test code = 0.3 See_Comment [Aut omated message] The Basophils) system which ge nerated this result tra nsmitted reference range : <=1.0. The reference r shannen was not used to int erpret this result as normal/abnormal . [facility] HospitalOzaalbvPINVRILIYR7896-30-74 10:07:00 Test Item Value Reference Range Interpretation Comments Segs-Bands # (test code = Segs-Bands #) 10.2 1.5-8.1 [facility] HospitalFeepegpYYYSZMZWSN2105-50-22 10:07:00 Test Item Value Reference Range Interpretation Comments Lymphocytes # (test code = Lymphocytes 0.9 1.0-5.5 #) [facility] HospitalThopgvpQAKJMOBAXZ0972-59-42 10:07:00 Test Item Value Reference Range Interpretation Comments Lymphocytes (test code = Lymphocytes) 7.3 20.0-40.0 [facility] HospitalAgtwouqXZVLTURJNQ6009-41-47 10:07:00 Test Item Value Reference Range Interpretation Comments Segs (test code = Segs) 82.3 45.0-75.0 [facility] HospitalJkjpgydMAGGSPFBHZ7990-29-22 10:07:00 Test Item Value Reference Range Interpretation Comments Eosinophils (test code = 0.0 See_Comment [A utomated message] The Eosinophils) system which ge nerated this result tra nsmitted reference range : <=4.0. The reference r shannen was not used to int erpret this result as normal/abnormal . [facility] HospitalKagrdtbTWTGTEXWXZ5807-34-83 10:07:00 Test Item Value Reference Range Interpretation Comments Monocytes (test code = Monocytes) 10.1 2.0-12.0 [facility] HospitalPpxqkftMANCHCCVIB8913-80-44 10:07:00 Test Item Value Reference Range Interpretation Comments RBC Morph (test code = Normal (09/22/16 5:07 AM) RBC Morph) [facility] HospitalRnhssqqVQVTOGOLLY2254-81-68 10:07:00 Test Item Value Reference Range Interpretation Comments Plt Morph (test code = Normal (09/22/16 5:07 AM) Plt Morph) [facility] [id number] 10:07:00 Test Item Value Reference Range Interpretation Comments eGFR (test code = eGFR) 92 [facility] BANK [id number] 14:29:00 Test Item Value Reference Range Interpretation Comments RBC product (test code Product available = RBC product) (09/20/16 9:29 AM) [facility] BANK [id number] 14:29:00 Test Item Value Reference Range Interpretation Comments RBC product (test code Product available = RBC product) (09/20/16 9:29 AM) [facility] BANK [id number] 14:29:00 Test Item Value Reference Range Interpretation Comments RBC product (test code Product available = RBC product) (09/20/16 9:29 AM) [facility] [employer] [id number] 14:43:00 Test Item Value Reference Range Interpretation Comments ABO/Rh (test code = ABO/Rh) O [facility] SIOVKMO3737-95-49 14:43:00 Test Item Value Reference Range Interpretation Comments Antibody Scrn (test Negative (09/15/16 9:43 code = Antibody Scrn) AM) [facility] [id number] 14:43:00 Test Item Value Reference Range Interpretation Comments ABO/Rh (test code = ABO/Rh) O POS [facility] [employer] [id number] 14:43:00 Test Item Value Reference Range Interpretation Comments Antibody Scrn (test Negative (09/15/16 9:43 code = Antibody Scrn) AM) [facility] [id number] 14:43:00 Test Item Value Reference Range Interpretation Comments ABO/Rh (test code = ABO/Rh) O POS [facility] [employer] [id number] 14:43:00 Test Item Value Reference Range Interpretation Comments Antibody Scrn (test Negative (09/15/16 9:43 code = Antibody Scrn) AM) [facility] [employer] [id number] 14:42:00 Test Item Value Reference Range Interpretation Comments eGFR (test code = eGFR) 93 [facility] [id number] 14:42:00 Test Item Value Reference Range Interpretation Comments Calcium Lvl (test code = Calcium Lvl) 9.3 8.5-10.5 [facility] [id number] 14:42:00 Test Item Value Reference Range Interpretation Comments BUN (test code = BUN) 16 7-22 [facility] [id number] 14:42:00 Test Item Value Reference Range Interpretation Comments Glucose Lvl (test code = Glucose Lvl) 94 70-99 [facility] [id number] 14:42:00 Test Item Value Reference Range Interpretation Comments CO2 (test code = CO2) 31 24-32 [facility] [id number] 14:42:00 Test Item Value Reference Range Interpretation Comments Creatinine Lvl (test code = Creatinine 0.81 0.50-1.40 Lvl) [facility]2017-04-27 14:42:00 Test Item Value Reference Range Interpretation Comments AGAP (test code = AGAP) 12.0 10.0-20.0 [facility]2017-04-27 14:42:00 Test Item Value Reference Range Interpretation Comments Potassium Lvl (test code = Potassium 4.0 3.5-5.1 Lvl) [facility]2017-04-27 14:42:00 Test Item Value Reference Range Interpretation Comments Chloride Lvl (test code = Chloride Lvl) 105 95-109 [facility]2017-04-27 14:42:00 Test Item Value Reference Range Interpretation Comments Sodium Lvl (test code = Sodium Lvl) 144 135-145 [facility] HospitalWpwyxeoPLTKORABNP5486-65-10 14:42:00 Test Item Value Reference Range Interpretation Comments MCV (test code = MCV) 95.4 80.0-94.0 [facility] HospitalPzknbasNABAWYFWVU8296-44-01 14:42:00 Test Item Value Reference Range Interpretation Comments RDW (test code = RDW) 13.3 11.5-14.5 [facility] HospitalSloukugTSRXLKAFKV1611-52-94 14:42:00 Test Item Value Reference Range Interpretation Comments MCHC (test code = MCHC) 33.8 32.0-36.0 [facility] HospitalJenrswqVWKNKNZYGO3923-58-23 14:42:00 Test Item Value Reference Range Interpretation Comments MPV (test code = MPV) 10.8 7.4-10.4 [facility] HospitalIcqwrfsMDGPYORXCO1020-28-52 14:42:00 Test Item Value Reference Range Interpretation Comments Platelet (test code = Platelet) 171 133-450 [facility] HospitalDvcrrxxECZYSRXPTV2158-87-91 14:42:00 Test Item Value Reference Range Interpretation Comments WBC (test code = WBC) 7.2 3.7-10.4 [facility] HospitalOptmpepIPXKHWCOJZ7759-61-67 14:42:00 Test Item Value Reference Range Interpretation Comments Hgb (test code = Hgb) 15.6 14.0-18.0 [facility] HospitalAwctelwLEPXNFODIY0266-35-83 14:42:00 Test Item Value Reference Range Interpretation Comments RBC (test code = RBC) 4.82 4.70-6.10 [facility] HospitalGbtcsleWSDPJZQOCJ0253-21-60 14:42:00 Test Item Value Reference Range Interpretation Comments Hct (test code = Hct) 46.0 42.0-54.0 [facility] HospitalGriazhtHSCCAERHJN1416-31-37 14:42:00 Test Item Value Reference Range Interpretation Comments MCH (test code = MCH) 32.3 pg 27.0-31.0 [facility] HospitalRwrurxkELAECOOKXC0417-60-60 14:42:00 Test Item Value Reference Range Interpretation Comments Basophils (test code = 0.8 See_Comment [Aut omated message] The Basophils) system which ge nerated this result tra nsmitted reference range : <=1.0. The reference r shannen was not used to int erpret this result as normal/abnormal . [facility] HospitalHguubomOMRJHBONBP4786-67-21 14:42:00 Test Item Value Reference Range Interpretation Comments Segs-Bands # (test code = Segs-Bands #) 3.9 1.5-8.1 [facility] HospitalZiunwkwQANYHBZSGM8539-50-97 14:42:00 Test Item Value Reference Range Interpretation Comments Lymphocytes # (test code = Lymphocytes 2.3 1.0-5.5 #) [facility] HospitalGmfuyzxOAMFXSNJNF9491-27-60 14:42:00 Test Item Value Reference Range Interpretation Comments Eosinophils # (test code 0.1 See_Comment [A utomated message] The = Eosinophils #) system whic h generated this result tra nsmitted reference range : <=0.5. The reference r shannen was not used to int erpret this result as normal/abnormal . [facility] HospitalBtfuriiQRJFCUFDIH6443-08-14 14:42:00 Test Item Value Reference Range Interpretation Comments Monocytes # (test code 0.8 See_Comment [Aut omated message] The = Monocytes #) system which generated this result tra nsmitted reference range : <=0.8. The reference r shannen was not used to int erpret this result as normal/abnormal . [facility] HospitalFlbujpePVJUXASRMW8963-26-72 14:42:00 Test Item Value Reference Range Interpretation Comments Basophils # (test code 0.1 See_Comment [Aut omated message] The = Basophils #) system which generated this result tra nsmitted reference range : <=0.2. The reference r shannen was not used to int erpret this result as normal/abnormal . [facility] HospitalYtkhmkdVHZPBMJKGD4219-87-14 14:42:00 Test Item Value Reference Range Interpretation Comments Segs (test code = Segs) 54.0 45.0-75.0 [facility] HospitalBrbudhuDBCBXVGUQY6293-67-70 14:42:00 Test Item Value Reference Range Interpretation Comments Lymphocytes (test code = Lymphocytes) 32.5 20.0-40.0 [facility] HospitalYvyutbjFCSUOAQNHW3026-64-67 14:42:00 Test Item Value Reference Range Interpretation Comments Eosinophils (test code = 1.7 See_Comment [A utomated message] The Eosinophils) system which ge nerated this result tra nsmitted reference range : <=4.0. The reference r shannen was not used to int erpret this result as normal/abnormal . [facility] HospitalUysiuglWPQPLCAIEO4187-70-23 14:42:00 Test Item Value Reference Range Interpretation Comments Monocytes (test code = Monocytes) 11.0 2.0-12.0 [facility]2017-04-27 14:42:00 Test Item Value Reference Range Interpretation Comments eGFR (test code = eGFR) 93 [facility]2017-04-27 14:42:00 Test Item Value Reference Range Interpretation Comments Calcium Lvl (test code = Calcium Lvl) 9.3 8.5-10.5 [facility]2017-04-27 14:42:00 Test Item Value Reference Range Interpretation Comments BUN (test code = BUN) 16 7-22 [facility]2017-04-27 14:42:00 Test Item Value Reference Range Interpretation Comments Glucose Lvl (test code = Glucose Lvl) 94 70-99 [facility]2017-04-27 14:42:00 Test Item Value Reference Range Interpretation Comments CO2 (test code = CO2) 31 24-32 [facility]2017-04-27 14:42:00 Test Item Value Reference Range Interpretation Comments Creatinine Lvl (test code = Creatinine 0.81 0.50-1.40 Lvl) [facility]2017-04-27 14:42:00 Test Item Value Reference Range Interpretation Comments AGAP (test code = AGAP) 12.0 10.0-20.0 [facility]2017-04-27 14:42:00 Test Item Value Reference Range Interpretation Comments Potassium Lvl (test code = Potassium 4.0 3.5-5.1 Lvl) [place] 900167-04-27 14:42:00 Test Item Value Reference Range Interpretation Comments Chloride Lvl (test code = Chloride Lvl) 105 95-109 [facility]2017-04-27 14:42:00 Test Item Value Reference Range Interpretation Comments Sodium Lvl (test code = Sodium Lvl) 144 135-145 [facility] HospitalYblcisiALHWOQCMVS9132-48-26 14:42:00 Test Item Value Reference Range Interpretation Comments MCV (test code = MCV) 95.4 80.0-94.0 [facility] HospitalTefdgtwKJEYTLHJNR8078-89-91 14:42:00 Test Item Value Reference Range Interpretation Comments RDW (test code = RDW) 13.3 11.5-14.5 [facility] HospitalIvqusrkUSEZWJQCLL5853-45-97 14:42:00 Test Item Value Reference Range Interpretation Comments MCHC (test code = MCHC) 33.8 32.0-36.0 [facility] HospitalCrcbuzaQCSBWOQKIP9649-69-97 14:42:00 Test Item Value Reference Range Interpretation Comments MPV (test code = MPV) 10.8 7.4-10.4 [facility] HospitalTycgwfdFEDFSZDNMN3156-53-69 14:42:00 Test Item Value Reference Range Interpretation Comments Platelet (test code = Platelet) 171 133-450 [facility] HospitalOtbuwweRVXNFNJAKK7978-46-04 14:42:00 Test Item Value Reference Range Interpretation Comments WBC (test code = WBC) 7.2 3.7-10.4 [facility] HospitalBfvcgbyMXSCXYENXS4949-19-79 14:42:00 Test Item Value Reference Range Interpretation Comments Hgb (test code = Hgb) 15.6 14.0-18.0 [facility] HospitalHuifqadCMGFVUYHOZ5587-68-72 14:42:00 Test Item Value Reference Range Interpretation Comments RBC (test code = RBC) 4.82 4.70-6.10 [facility] HospitalMlrzhukURUVAQKXPX1380-93-61 14:42:00 Test Item Value Reference Range Interpretation Comments Hct (test code = Hct) 46.0 42.0-54.0 [facility] HospitalAqyztpaQDTDLHABDM5540-77-21 14:42:00 Test Item Value Reference Range Interpretation Comments MCH (test code = MCH) 32.3 pg 27.0-31.0 [facility] HospitalQeoagqcBSSBXWMBNE2825-33-38 14:42:00 Test Item Value Reference Range Interpretation Comments Basophils (test code = 0.8 See_Comment [Aut omated message] The Basophils) system which ge nerated this result tra nsmitted reference range : <=1.0. The reference r shannen was not used to int erpret this result as normal/abnormal . [facility] HospitalDrtvqwaZQSZEGGYRK7561-94-72 14:42:00 Test Item Value Reference Range Interpretation Comments Segs-Bands # (test code = Segs-Bands #) 3.9 1.5-8.1 [facility] HospitalQktuesmBECJBOJBQQ6520-03-06 14:42:00 Test Item Value Reference Range Interpretation Comments Lymphocytes # (test code = Lymphocytes 2.3 1.0-5.5 #) [facility] HospitalPloetscGBDTYHSAKP5150-01-41 14:42:00 Test Item Value Reference Range Interpretation Comments Eosinophils # (test code 0.1 See_Comment [A utomated message] The = Eosinophils #) system whic h generated this result tra nsmitted reference range : <=0.5. The reference r shannen was not used to int erpret this result as normal/abnormal . [facility] HospitalBfvmfzbMLKXJIRBVF6359-19-14 14:42:00 Test Item Value Reference Range Interpretation Comments Monocytes # (test code 0.8 See_Comment [Aut omated message] The = Monocytes #) system which generated this result tra nsmitted reference range : <=0.8. The reference r shannen was not used to int erpret this result as normal/abnormal . [facility] HospitalPboigguXUSIZCBWYT3545-33-95 14:42:00 Test Item Value Reference Range Interpretation Comments Basophils # (test code 0.1 See_Comment [Aut omated message] The = Basophils #) system which generated this result tra nsmitted reference range : <=0.2. The reference r shannen was not used to int erpret this result as normal/abnormal . [facility] HospitalLkxvfktEKCKNGWXTZ9311-93-54 14:42:00 Test Item Value Reference Range Interpretation Comments Segs (test code = Segs) 54.0 45.0-75.0 [facility] HospitalThegywxPGTHXGXXLF0822-64-53 14:42:00 Test Item Value Reference Range Interpretation Comments Lymphocytes (test code = Lymphocytes) 32.5 20.0-40.0 [facility] HospitalOsrbmfpKHOLEPZJZX4523-78-00 14:42:00 Test Item Value Reference Range Interpretation Comments Eosinophils (test code = 1.7 See_Comment [A utomated message] The Eosinophils) system which ge nerated this result tra nsmitted reference range : <=4.0. The reference r shannen was not used to int erpret this result as normal/abnormal . [facility] HospitalDitjfwhRAYASWOXBX2614-41-87 14:42:00 Test Item Value Reference Range Interpretation Comments Monocytes (test code = Monocytes) 11.0 2.0-12.0 [facility]2017-04-27 14:42:00 Test Item Value Reference Range Interpretation Comments eGFR (test code = eGFR) 93 [facility]2017-04-27 14:42:00 Test Item Value Reference Range Interpretation Comments Calcium Lvl (test code = Calcium Lvl) 9.3 8.5-10.5 [facility]2017-04-27 14:42:00 Test Item Value Reference Range Interpretation Comments BUN (test code = BUN) 16 7-22 [facility]2017-04-27 14:42:00 Test Item Value Reference Range Interpretation Comments Glucose Lvl (test code = Glucose Lvl) 94 70-99 [facility]2017-04-27 14:42:00 Test Item Value Reference Range Interpretation Comments CO2 (test code = CO2) 31 24-32 [facility]2017-04-27 14:42:00 Test Item Value Reference Range Interpretation Comments Creatinine Lvl (test code = Creatinine 0.81 0.50-1.40 Lvl) [facility]2017-04-27 14:42:00 Test Item Value Reference Range Interpretation Comments AGAP (test code = AGAP) 12.0 10.0-20.0 [facility]2017-04-27 14:42:00 Test Item Value Reference Range Interpretation Comments Potassium Lvl (test code = Potassium 4.0 3.5-5.1 Lvl) [facility]2017-04-27 14:42:00 Test Item Value Reference Range Interpretation Comments Chloride Lvl (test code = Chloride Lvl) 105 95-109 [facility]2017-04-27 14:42:00 Test Item Value Reference Range Interpretation Comments Sodium Lvl (test code = Sodium Lvl) 144 135-145 [facility] HospitalExqvuhcPTOKDCAHYV5089-70-82 14:42:00 Test Item Value Reference Range Interpretation Comments MCV (test code = MCV) 95.4 80.0-94.0 [facility] HospitalYzfvgeiTEERYIIZHI2050-33-64 14:42:00 Test Item Value Reference Range Interpretation Comments RDW (test code = RDW) 13.3 11.5-14.5 [facility] HospitalFodtwitOZCUINNCDN9454-26-50 14:42:00 Test Item Value Reference Range Interpretation Comments MCHC (test code = MCHC) 33.8 32.0-36.0 [facility] HospitalEutlgucVBTFAQIRHG4045-54-18 14:42:00 Test Item Value Reference Range Interpretation Comments MPV (test code = MPV) 10.8 7.4-10.4 [facility] HospitalTghuiczERHJGDEXYP1887-67-02 14:42:00 Test Item Value Reference Range Interpretation Comments Platelet (test code = Platelet) 171 133-450 [facility] HospitalGplfzkvYATVVYEQJP3670-56-32 14:42:00 Test Item Value Reference Range Interpretation Comments WBC (test code = WBC) 7.2 3.7-10.4 [facility] HospitalGtugrmwTFYGPXNVXC8175-93-22 14:42:00 Test Item Value Reference Range Interpretation Comments Hgb (test code = Hgb) 15.6 14.0-18.0 [facility] HospitalYhbnnxpQLLGJUZIQA1992-48-62 14:42:00 Test Item Value Reference Range Interpretation Comments RBC (test code = RBC) 4.82 4.70-6.10 [facility] HospitalSpxnsprDROXKSDOAK8093-79-60 14:42:00 Test Item Value Reference Range Interpretation Comments Hct (test code = Hct) 46.0 42.0-54.0 [facility] HospitalPfyktjuQLOJGSVLEA0442-57-62 14:42:00 Test Item Value Reference Range Interpretation Comments MCH (test code = MCH) 32.3 pg 27.0-31.0 [facility] HospitalHzourqlRGKEVFEGHE0958-45-96 14:42:00 Test Item Value Reference Range Interpretation Comments Basophils (test code = 0.8 See_Comment [Aut omated message] The Basophils) system which ge nerated this result tra nsmitted reference range : <=1.0. The reference r shannen was not used to int erpret this result as normal/abnormal . [facility] HospitalQtjynthHJMFLCNTMC4381-27-87 14:42:00 Test Item Value Reference Range Interpretation Comments Segs-Bands # (test code = Segs-Bands #) 3.9 1.5-8.1 [facility] HospitalFoimnbgZINCUPZVUT5790-61-60 14:42:00 Test Item Value Reference Range Interpretation Comments Lymphocytes # (test code = Lymphocytes 2.3 1.0-5.5 #) [facility] HospitalLbshglmQKAVCKOYYV4815-80-64 14:42:00 Test Item Value Reference Range Interpretation Comments Eosinophils # (test code 0.1 See_Comment [A utomated message] The = Eosinophils #) system wh h generated this result tra nsmitted reference range : <=0.5. The reference r shannen was not used to int erpret this result as normal/abnormal . [id number] 14:42:00 Test Item Value Reference Range Interpretation Comments Monocytes # (test code 0.8 See_Comment [Aut omated message] The = Monocytes #) system which generated this result tra nsmitted reference range : <=0.8. The reference r shannen was not used to int erpret this result as normal/abnormal . [facility] [id number] 14:42:00 Test Item Value Reference Range Interpretation Comments Basophils # (test code 0.1 See_Comment [Aut omated message] The = Basophils #) system which generated this result tra nsmitted reference range : <=0.2. The reference r shannen was not used to int erpret this result as normal/abnormal . [facility] [id number] 14:42:00 Test Item Value Reference Range Interpretation Comments Segs (test code = Segs) 54.0 45.0-75.0 [facility] [id number] 14:42:00 Test Item Value Reference Range Interpretation Comments Lymphocytes (test code = Lymphocytes) 32.5 20.0-40.0 [facility] [id number] 14:42:00 Test Item Value Reference Range Interpretation Comments Eosinophils (test code = 1.7 See_Comment [A utomated message] The Eosinophils) system which ge nerated this result tra nsmitted reference range : <=4.0. The reference r shannen was not used to int erpret this result as normal/abnormal . [facility] [id number] 14:42:00 Test Item Value Reference Range Interpretation Comments Monocytes (test code = Monocytes) 11.0 2.0-12.0 [facility]
[2022-05-16] MEDS ORDERED: ONDANSETRON 4 MG/2 ML VIAL ONE (11:40)
[2022-05-16] MEDS ORDERED: NA CHLORIDE 0.9% 2,000 ML ONE (11:40)
[2022-05-16] MEDS ORDERED: HYDROMORPHONE HCL 1 MG/ML INJ ONE ×2 (11:40→13:34)
[2022-05-16] MEDS ORDERED: FAMOTIDINE 20 MG/2 ML VIAL IV ONE (11:40)
--- NOTE | 2022-05-16 11:45 | RAD REPORT ---
EXAM DESCRIPTION: RAD - Chest Single View - 05/16/2022 11:30 am CLINICAL HISTORY: COUGH Chest pain. COMPARISON: CT RAD RX FIELD SPINE dated 02/07/2022 FINDINGS: Portable technique limits examination quality. Mild linear atelectasis is present in the right lung base. The lungs are otherwise clear. The heart i s upper limit of normal in size. No displaced fractures.
[2022-05-16 12:06] LABS: Protime INR 1.67
[2022-05-16 12:11] LABS: SARS-CoV-2 Antigen Rapid Res Negative (Negative)
[2022-05-16 12:21] LABS: Absolute Lymphocytes (CBC) 1.1 K/uL (0.7-4.9); Hematocrit 40.9 % (39.6-49.0); Lymphocytes % 12.9 % (15.3-44.8); MCV 93.7 fL (80-100); RBC Red Blood Cell Count 4.37 M/uL (4.33-5.43)
--- NOTE | 2022-05-16 12:22 | RAD REPORT ---
EXAM DESCRIPTION: CTChest Abd Pelvis Wo Con - 05/16/2022 12:04 pm CLINICAL HISTORY: cp/abd pain COMPARISON: CT RAD RX FIELD SPINE dated 02/07/2022 TECHNIQUE: CT of the chest, abdomen, and pelvis was performed without IV contrast. All CT scans are performed using dose optimization technique as appropriate and may include automated exposure control or mA/KV adjustment according to patient size. FINDINGS: Thorax: Chest Wall: No abnormal mass Lungs: Linear scarring in the right lower lobe. Pleura: Small right pleural effusion. Belkis/Mediastinum: No lymphadenopathy. Aorta/Pulmonary Arteries: Unremarkable Heart: Normal size. Multi-vessel coronary artery disease. Abdomen/Pelvis: Liver: Hepatomegaly. Biliary: No biliary ductal dilatation. Stomach: No significant focal abnormality. Duodenum: No significant focal abnormality. Pancreas: No significant abnormality. Spleen: No significant abnormality. Adrenal: No suspicious lesions. Kidney/ureter: No hydronephrosis. No renal calculi. Retroperitoneum: No retroperitoneal adenopathy. Vascular: No aneurysm. Atherosclerosis Bowel: No significant focal abnormality. Peritoneum: Small volume of free fluid. Bladder: Grossly unremarkable. Reproductive: Prostatectomy. Bones: T4 burst fracture which appears pathologic is likely subacute. There is approximately 30% loss of height and slight bony retropulsion. There is multiple sclerotic osseous foci noted. Left hip art hroplasty. . Other: n/a IMPRESSION: 1. Small volume of abdominopelvic free fluid/ ascites that is nonspecific. 2. Small right pleural effusion with underlying atelectasis and/or scarring. 3. Osseous metastatic disease. Pathologic burst fracture at T4 that is probably subacute but correlat e clinically.
[2022-05-16] MEDS ORDERED: NA CHLORIDE 0.9% 100 ML IV ONE (12:25)
[2022-05-16] MEDS ORDERED: PIPERACIL/TAZO 3.375 GM VIAL IV ONE (12:26)
[2022-05-16 12:42] LABS: Albumin 2.5 g/dL (3.4-5.0); Bilirubin Direct 5.9 mg/dL (0-0.2); Protein, Total 6.9 g/dL (6.4-8.2); Troponin High Sensitivity 13.4 pg/mL (<58.9)
[2022-05-16 12:50] LABS: Potassium 4.3 mmol/L (3.5-5.1)
[2022-05-16 12:51] LABS: Magnesium 2.7 mg/dL (1.6-2.4)
[2022-05-16 12:52] LABS: Bilirubin Total 7.2 mg/dL (0.2-1.0)
--- NOTE | 2022-05-16 13:07 | EDPHYS ---
Physician Documentation [facility] Name: Rickie Glez Age: 71 yrs Sex: Male : 1950 Arrival Date: 05/16/2022 Time: 10:49 Bed 6 Private MD: PETRA Physician Feroz Dill HPI: 05/16 11:47 This 71 yrs old Male presents to ER via Wheelchair with complaints of Cancer miguelangel pt, Nausea/Vomiting, Dehydrated, Abdominal Pain. 11:47 The patient presents to the emergency department with nausea, vomiting, that is miguelangel intermittent, described as clear fluid. Onset: The symptoms/episode began/occurred 3 day(s) ago. Possible causes: unknown. The symptoms are aggravated by movement, pressure, food , The symptoms are alleviated by nothing. Associated signs and symptoms: Pertinent positives: abdominal pain, anorexia, belching, nausea, vomiting. Severity of symptoms: At their worst the symptoms were moderate in the emergency department the symptoms are unchanged. The patient has not experienced similar symptoms in the past. Historical: - Allergies: 11:21 PENICILLINS; ld1 11:21 Doxycycline; ld1 11:21 Tylenol-Codeine #3; ld1 11:21 Tylenol-Codeine #4; ld1 - PMHx: 11:21 Cancer; ld1 - PSHx: 11:21 Prostatectomy; ld1 - Immunization history:: Adult Immunizations up to date, Client reports receiving the 2nd dose of the Covid vaccine. - Social history:: Smoking status: Patient denies any tobacco usage or history of. Patient/guardian denies using alcohol. ROS: 11:49 ENT: Negative for injury, pain, and discharge, Neck: Negative for injury, pain, and miguelangel swelling, Cardiovascular: Negative for chest pain, palpitations, and edema, Respiratory: Negative for shortness of breath, cough, wheezing, and pleuritic chest pain, Back: Negative for injury and pain, : Negative for injury, bleeding, discharge, and swelling, MS/Extremity: Negative for injury and deformity, Psych: Negative for depression, anxiety, suicide ideation, homicidal ideation, and hallucinations, Allergy/Immunology: Negative for hives, rash, and allergies, Endocrine: Negative for neck swelling, polydipsia, polyuria, polyphagia, and marked weight changes. 11:49 Constitutional: Positive for body aches, chills, fatigue. 11:49 Eyes: Positive for icterus. 11:49 Cardiovascular: Positive for palpitations. 11:49 Respiratory: Negative for cough, shortness of breath. 11:49 Abdomen/GI: Positive for abdominal pain, nausea, vomiting, abdominal cramps, abdominal distension, of the right upper quadrant, left upper quadrant, right lower quadrant and left lower quadrant. 11:49 Skin: Positive for diaphoresis, jaundice, diffusely. Exam: 11:49 Constitutional: This is a well developed, well nourished patient who is awake, alert, miguelangel and in no acute distress. Head/Face: Normocephalic, atraumatic. Eyes: Pupils equal round and reactive to light, extra-ocular motions intact. Lids and lashes normal. Conjunctiva and sclera are non-icteric and not injected. Cornea within normal limits. Periorbital areas with no swelling, redness, or edema. ENT: Nares patent. No nasal discharge, no septal abnormalities noted. Tympanic membranes are normal and external auditory canals are clear. Oropharynx with no redness, swelling, or masses, exudates, or evidence of obstruction, uvula midline. Mucous membranes moist. Neck: Trachea midline, no thyromegaly or masses palpated, and no cervical lymphadenopathy. Supple, full range of motion without nuchal rigidity, or vertebral point tenderness. No Meningismus. Chest/axilla: Normal chest wall appearance and motion. Nontender with no deformity. No lesions are appreciated. Respiratory: Lungs have equal breath sounds bilaterally, clear to auscultation and percussion. No rales, rhonchi or wheezes noted. No increased work of breathing, no retractions or nasal flaring. Back: No spinal tenderness. No costovertebral tenderness. Full range of motion. Male : Normal genitalia with no discharge or lesions. MS/ Extremity: Pulses equal, no cyanosis. Neurovascular intact. Full, normal range of motion. Neuro: Awake and alert, GCS 15, oriented to person, place, time, and situation. Cranial nerves II-XII grossly intact. Motor strength 5/5 in all extremities. Sensory grossly intact. Cerebellar exam normal. Normal gait. Psych: Awake, alert, with orientation to person, place and time. Behavior, mood, and affect are within normal limits. 11:49 Cardiovascular: Rate: normal, Rhythm: regular, Pulses: Pulses are 4+ in bilateral radial, brachial, femoral, popliteal, posterior tibial and and dorsalis pedis arteries.. Heart sounds: normal, Edema: is not appreciated, JVD: is not appreciated. 11:49 Abdomen/GI: Inspection: distension, that is moderate, obese Bowel sounds: normal, Palpation: moderate abdominal tenderness, in the right upper quadrant and left upper quadrant, Liver: no appreciated palpable abnormalities, Hernia: not appreciated. 14:10 ECG was reviewed by the Attending Physician. miguelangel Vital Signs: 11:19 BP 137 / 74; Pulse 95; Resp 18; Temp 97.5(O); Pulse Ox 97% on R/A; Weight 122.47 kg; bp Height 5 ft. 11 in. (180.34 cm); Pain 8/10; 13:00 BP 106 / 77; Pulse 103; Resp 17; Pulse Ox 97% ; bp 14:00 BP 121 / 84; Pulse 101; Resp 24; Pulse Ox 97% ; bp 15:30 BP 105 / 67; Pulse 105; Resp 13; Pulse Ox 98% ; bp 11:19 Body Mass Index 37.66 (122.47 kg, 180.34 cm) bp MDM: 10:51 Patient medically screened. miguelangle 13:49 Differential diagnosis: Nonspecific abd pain, cholecystitis, pancreatitis, miguelangel appendicitis, diverticulitis, viral gastroenteritis, gastroenteritis, bowel obstruction, Cholelithiasis, diverticulitis, gastritis, GI Bleed, non-specific abd pain, pancreatitis, Peptic Ulcer Disease, Prostatitis, Pyelonephritis, urinary tract infection. Differential Diagnosis sepsis. Data reviewed: vital signs, nurses notes, EMS record, lab test result(s), EKG, radiologic studies, CT scan, plain films. Data interpreted: residential monitor: rate is 95 beats/min, rhythm is regular, Pulse oximetry: on room air is 97 %. Test interpretation: by ED physician or midlevel provider: ECG, plain radiologic studies. Counseling: I had a detailed discussion with the patient and/or guardian regarding: the historical points, exam findings, and any diagnostic results supporting the discharge/admit diagnosis, lab results, radiology results, the need to transfer to another facility, for higher level of care, [facility] does not immediately have the required specialist. 05/16 11:00 Order name: Basic Metabolic Panel; Complete Time: 12:58 miguelangel 05/16 11:00 Order name: CBC with Diff [facility] 05/16 11:00 Order name: LFT's; Complete Time: 12:58 [facility] 05/16 11:00 Order name: Magnesium; Complete Time: 12:58 [facility] 05/16 11:00 Order name: NT PRO-BNP; Complete Time: 12:58 [facility] 05/16 11:00 Order name: PT-INR; Complete Time: 12:30 [facility] 05/16 11:00 Order name: Troponin HS; Complete Time: 12:58 [facility] 05/16 11:00 Order name: XRAY Chest (1 view); Complete Time: 12:30 [facility] 05/16 11:00 Order name: Lipase; Complete Time: 12:58 [facility] 05/16 11:00 Order name: SARS RAPID; Complete Time: 12:30 [facility] 05/16 11:37 Order name: CT Chest Abdomen Pelvis W/O Contrast; Complete Time: 12:30 [facility] 05/16 11:53 Order name: AMMONIA em1 05/16 11:54 Order name: Type And Screen [facility] 05/16 13:18 Order name: Manual Differential EDMS 05/16 11:00 Order name: EKG; Complete Time: 11:00 [facility] 05/16 11:00 Order name: Cardiac monitoring; Complete Time: 11:25 [facility] 05/16 11:00 Order name: EKG - Nurse/Tech; Complete Time: 14:12 [facility] 05/16 11:00 Order name: IV Saline Lock; Complete Time: 11:57 [facility] 05/16 11:00 Order name: Labs collected and sent; Complete Time: 11:57 [facility] 05/16 11:00 Order name: O2 Per Protocol; Complete Time: 11:25 [facility] 05/16 11:00 Order name: O2 Sat Monitoring; Complete Time: 11:25 [facility] 05/16 11:47 Order name: IV - Large Bore; Complete Time: 11:57 [facility] EC:10 Rate is 106 beats/min. Rhythm is regular. QRS Mor[place] is Normal. QRS interval is normal. [facility] QT interval is normal. No Q waves. T waves are Normal. No ST changes noted. Clinical impression: Sinus tachycardia. Interpreted by me. Reviewed by me. Administered Medications: 11:40 Drug: NS 0.9% 1000 ml Route: IV; Rate: 1 bolus; Site: right forearm; bp 15:32 Follow up: IV Status: Completed infusion; IV Intake: 1000ml bp 11:50 Drug: Zofran (Ondansetron) 4 mg Route: IVP; Site: right forearm; bp 15:33 Follow up: Response: No adverse reaction bp 11:50 Drug: Pepcid (famotidine) 20 mg Route: IVP; Site: right forearm; bp 15:33 Follow up: Response: No adverse reaction bp 11:50 Drug: Dilaudid (HYDROmorphone) 1 mg Route: IVP; Site: right forearm; bp 15:33 Follow up: Response: No adverse reaction bp 11:50 Drug: NS 0.9% 1000 ml Route: IV; Rate: 1 bolus; Site: right forearm; bp 15:33 Follow up: IV Status: Completed infusion; IV Intake: 1000ml bp 13:00 Drug: Meropenem 1 grams Route: IV; Rate: per protocol; Site: right antecubital; bp 15:32 Follow up: IV Status: Completed infusion; IV Intake: 100ml bp Disposition Summary: 05/16/22 13:06 Transfer Ordered Transfer Location: Other Acute Care Facility miguelangel Reason: Higher level of care miguelangel Condition: Serious miguelangel Problem: new miguelangel Symptoms: have improved miguelangel Accepting Physician: to [facility](05/16/22 15:54) bp Diagnosis - Generalized abdominal tenderness - 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
--- NOTE | 2022-05-16 13:07 | ER ---
Nurse's Notes 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 Pt reports having cancer, ld1 Dr. Bustillos discussing possible Hospice. Pt requesting to control pain, doctor reports possibly only "having a few days left.". Coronavirus screen: At this time, the client does not indicate any symptoms associated with coronavirus-19. Ebola Screen: No symptoms or risks identified at this time. Initial Sepsis Screen: Does the patient meet any 2 criteria? No. Patient's initial sepsis screen is negative. Does the patient have a suspected source of infection? No. Patient's initial sepsis screen is negative. Risk Assessment: Do you want to hurt yourself or someone else? Patient reports no desire to harm self or others. Onset of symptoms was May 16, 2022. 11:19 Method Of Arrival: Wheelchair ld1 11:19 Acuity: KAYLEN 2 ld1 Triage Assessment: 11:21 General: Appears in no apparent distress. uncomfortable, ill, Behavior is calm, ld1 cooperative, appropriate for age. Pain: Complains of pain in right upper quadrant and left upper quadrant Pain does not radiate. Pain currently is 9 out of 10 on a pain scale. Quality of pain is described as sharp, shooting, throbbing. EENT: No signs and/or symptoms were reported regarding the EENT system. Neuro: Level of Consciousness is awake, alert, obeys commands, Oriented to person, place, time, situation. Cardiovascular: Capillary refill < 3 seconds Patient's skin is warm and dry. Rhythm is. Respiratory: Airway is patent Respiratory effort is even, unlabored. GI: Abdomen is round non-distended, Reports nausea, vomiting. : No signs and/or symptoms were reported regarding the genitourinary system. Derm: Skin is jaundiced. Musculoskeletal: No signs and/or symptoms reported regarding the musculoskeletal system. Historical: - Allergies: 11:21 PENICILLINS; ld1 11:21 Doxycycline; ld1 11:21 Tylenol-Codeine #3; ld1 11:21 Tylenol-Codeine #4; ld1 - PMHx: 11:21 Cancer; ld1 - PSHx: 11:21 Prostatectomy; ld1 - Immunization history:: Adult Immunizations up to date, Client reports receiving the 2nd dose of the Covid vaccine. - Social history:: Smoking status: Patient denies any tobacco usage or history of. Patient/guardian denies using alcohol. Screenin:15 [facility] ED Fall Risk Assessment (Adult) History of falling in the last 3 months, bp including since admission No falls in past 3 months (0 pts). Abuse screen: Denies threats or abuse. Denies injuries from another. Nutritional screening: No deficits noted. Tuberculosis screening: No symptoms or risk factors identified. Assessment: 11:20 General: SEE TRIAGE NOTE. bp 12:00 Reassessment: No changes from previously documented assessment. Patient and/or family bp updated on plan of care and expected duration. Pain level reassessed. 13:00 Reassessment: No changes from previously documented assessment. Patient and/or family bp updated on plan of care and expected duration. Pain level reassessed. GI: Abd is rigid X 4 quads. 14:00 Reassessment: REPORT TO MD KIMBERLI MI RN. [facility] 50 MIN. bp 15:31 Reassessment: [facility] AT B/S FOR TRANSPORT. GI: Abdomen is noted to have ascites. bp Vital Signs: 11:19 BP 137 / 74; Pulse 95; Resp 18; Temp 97.5(O); Pulse Ox 97% on R/A; Weight 122.47 kg; bp Height 5 ft. 11 in. (180.34 cm); Pain 8/10; 13:00 BP 106 / 77; Pulse 103; Resp 17; Pulse Ox 97% ; bp 14:00 BP 121 / 84; Pulse 101; Resp 24; Pulse Ox 97% ; bp 15:30 BP 105 / 67; Pulse 105; Resp 13; Pulse Ox 98% ; bp 11:19 Body Mass Index 37.66 (122.47 kg, 180.34 cm) bp ED Course: 10:49 Patient arrived in ED. mr 10:51 Feroz Dill MD is Attending Physician. miguelangel 11:12 Lianna Prceiado, RN is Primary Nurse. ll1 11:12 Arm band placed on Patient placed in an exam room, on a stretcher. ll1 11:15 Patient has correct armband on for positive identification. Bed in low position. Call bp light in reach. Side rails up X2. Adult w/ patient. 11:19 Geoff Kiser, RN is Primary Nurse. bp 11:21 Triage completed. ld1 11:32 XRAY Chest (1 view) In Process Unspecified. EDMS 11:50 Inserted saline lock: 20 gauge in right forearm, using aseptic technique. Blood bp collected. 12:06 CT Chest Abdomen Pelvis W/O Contrast In Process Unspecified. EDMS 15:31 No provider procedures requiring assistance completed. Patient transferred, IV remains bp in place. Administered Medications: 11:40 Drug: NS 0.9% 1000 ml Route: IV; Rate: 1 bolus; Site: right forearm; bp 15:32 Follow up: IV Status: Completed infusion; IV Intake: 1000ml bp 11:50 Drug: Zofran (Ondansetron) 4 mg Route: IVP; Site: right forearm; bp 15:33 Follow up: Response: No adverse reaction bp 11:50 Drug: Pepcid (famotidine) 20 mg Route: IVP; Site: right forearm; bp 15:33 Follow up: Response: No adverse reaction bp 11:50 Drug: Dilaudid (HYDROmorphone) 1 mg Route: IVP; Site: right forearm; bp 15:33 Follow up: Response: No adverse reaction bp 11:50 Drug: NS 0.9% 1000 ml Route: IV; Rate: 1 bolus; Site: right forearm; bp 15:33 Follow up: IV Status: Completed infusion; IV Intake: 1000ml bp 13:00 Drug: Meropenem 1 grams Route: IV; Rate: per protocol; Site: right antecubital; bp 15:32 Follow up: IV Status: Completed infusion; IV Intake: 100ml bp Medication: 15:32 VIS not applicable for this client. bp Intake: 15:32 IV: 100ml; Total: 100ml. bp 15:32 IV: 1000ml; Total: 1100ml. bp 15:33 IV: 1000ml; Total: 2100ml. bp Outcome: 13:06 ER care complete, transfer ordered by MD. miguelangel 15:31 Transferred by ground EMS to [facility]. bp 15:31 Condition: stable 15:31 Instructed on the need for transfer. 15:54 Patient left the ED. bp Signatures: Dispatcher [employer] EDMS Feroz Dill MD MD cha Rivera, Kathya mr Kiser, Geoff, RN RN bp Lianna Preciado RN RN ll1 Angelica Campos RN RN ld1 Corrections: (The following items were deleted from the chart) 15:36 11:19 BP 137 / 74; Pulse 95bpm; Resp 18bpm; Pulse Ox 97% RA; Temp 97.5F Oral; 122.47 bp kg; Height 5 ft. 11 in.; BMI: 37.6; Pain 8/10; ld1
[2022-05-16 13:17] LABS: Blood Morphology Comment NOT SEEN (NOT SEEN); Platelet Estimate ADEQ
[2022-05-16 16:03] VITALS: TEMP 97.5
[2022-05-16 16:20] VITALS: BP 105/67; O2SAT 98
--- NOTE | 2022-05-17 13:41 | EKG ---
Test Date: 2022-05-16 Test Time: 14:07:21 Family Life Counselor: BP MEASUREMENT RESULTS: Intervals: Rate: 106 WV: 162 QRSD: 112 QT: 374 QTc: 496 [place]: P: -4 WV: 162 QRS: -54 T: 68 INTERPRETIVE STATEMENTS: Sinus tachycardia with occasional premature ventricular complexes Incomplete right bundle branch block Left anterior fascicular block Abnormal ECG No previous ECG available for comparison Electronically Signed On 05-17-22 13:38:25 [employer] by Ron Leach
== END 2022-05-16 15:54 ==
LOC: ER 10:47
DX: R10.819 Abdominal tenderness, unspecified site (principal); C61 Malignant neoplasm of prostate; C78.7 Secondary malignant neoplasm of liver and intrahepatic bile duct; K83.1 Obstruction of bile duct; N17.9 Acute kidney failure, unspecified; R53.1 Weakness; R11.10 Vomiting, unspecified; Z88.0 Allergy status to penicillin; Z88.1 Allergy status to other antibiotic agents; Z88.5 Allergy status to narcotic agent; Z20.822 Contact with and (suspected) exposure to COVID-19
CPT/HCPCS: 93005; 85025; 80048; 36415; 82140; 86900; 83735; 86850; 85610; 86901; 80076; 84484; 83690; 83880; 71250; 74176; 71045; 87811; J2543; J1170 ×2; J7030; J2405; 96361; 96365; 96366; 96375; 99285